=== PATIENT | female | born 1940 | race Caucasian/White ===

== ENCOUNTER 2016-07-03 19:30 | Observation (INO) | payer MEDICARE ==
--- NOTE | 2016-07-03 21:14 | EKG REPORT ---
SEVERITY:- ABNORMAL ECG - SINUS RHYTHM LEFT BUNDLE BRANCH BLOCK : Confirmed by: Ciro Romero MD 03-Jul-2016 21:13:43
[2016-07-03 21:36] LABS: ABSOLUTE BASOPHILS # (AUTO) 0.1 10^3/uL (0.0-0.2); ABSOLUTE EOSINOPHILS # (AUTO) 0.3 10^3/uL (0.0-0.6); ABSOLUTE LYMPHOCYTES (AUTO) 2.1 10^3/uL (0.5-4.7); ABSOLUTE MONOCYTES (AUTO) 0.8 10^3/uL (0.1-1.4); ABSOLUTE NEUT (AUTO) 5.6 10^3/uL (1.7-8.2); BASOPHILS % (AUTO) 0.7 % (0-2); EOSINOPHILS % (AUTO) 2.8 % (0-6); HEMATOCRIT 40.5 % (36.0-47.0); HEMOGLOBIN 13.9 g/dL (12.0-15.5); HGB HCT DIFFERENCE 1.2; LYMPHOCYTES % (AUTO) 23.7 % (13-45); MEAN CORPUSCULAR HEMOGLOBIN 31.7 pg (27.0-33.4); MEAN CORPUSCULAR HGB CONC 34.2 g/dL (32.0-36.0); MEAN CORPUSCULAR VOLUME 93 fl (80-97); MONOCYTES % (AUTO) 9.5 % (3-13); RED BLOOD COUNT 4.38 10^6/uL (3.72-5.28); RED CELL DISTRIBUTION WIDTH 12.6 % (11.5-14.0); SEGMENTED NEUTROPHILS % (AUTO) 63.3 % (42-78); WHITE BLOOD COUNT 8.8 10^3/uL (4.0-10.5)
[2016-07-03] MEDS ORDERED: NITROGLYCERIN 2% OINTMENT 1 GM PACKET TP ONE (21:47)
[2016-07-03 21:51] LABS: ALANINE AMINOTRANSFERASE 35 U/L (9-52); ALBUMIN 4.7 g/dL (3.5-5.0); ALKALINE PHOSPHATASE 100 U/L (38-126); ANION GAP 15 (5-19); ASPARTATE AMINO TRANSFERASE 27 U/L (14-36); BILIRUBIN,TOTAL 0.7 mg/dL (0.2-1.3); BLOOD UREA NITROGEN 14 mg/dL (7-20); CALCIUM 9.5 mg/dL (8.4-10.2); CARBON DIOXIDE 25 mmol/L (22-30); CHLORIDE 104 mmol/L (98-107); CREATINE KINASE 151 U/L (30-135); CREATININE RESULT 0.79 mg/dL (0.52-1.25); GLUCOSE 99 mg/dL (75-110); LIPASE 128.7 U/L (23-300); POTASSIUM 3.9 mmol/L (3.6-5.0); SODIUM 143.5 mmol/L (137-145); TOTAL PROTEIN 7.3 g/dL (6.3-8.2)
[2016-07-03 21:52] LABS: PROTHROMBIN TIME 13.4 SEC (11.4-15.4)
[2016-07-03 22:02] LABS: CREATINE KINASE MB 1.78 ng/mL (<4.55)
[2016-07-03 22:03] LABS: TROPONIN I < 0.012 ng/mL
--- NOTE | 2016-07-03 23:55 | ER Document Report ---
ED General - General Chief Complaint: Chest Pain Stated Complaint: UPPER ABDOMINAL PAIN TRAVEL OUTSIDE OF THE [place] IN LAST 30 DAYS: No - HPI Patient complains to provider of: left side chest pain left upper abdominal pain Notes: Patient coming in for left-sided chest pain started this morning. Patient also states also developed left upper abdominal pain. States pain or chest radiation to her shoulder. Patient states relieved with nitroglycerin home. Patient has a history of her recent stent placed in her LAD at the [facility] a Enrique Rice. Patient also states at that time told she has a left bundle branch block. Otherwise patient denies diaphoresis nausea vomiting fevers chills. Patient states she is still having some mild chest pain left side. No trauma no recent travel in the last 2 months Patient states she currently sees [facility] and also has been evaluated by Dr. guan - Related Data Allergies/Adverse Reactions: No Known Allergies Allergy (Unverified 07/03/16 23:19) Home Medications: Current Home Medications Albuterol Sulfate [Ventolin Hfa] 2 puff IN PRN PRN 07/04/16 [History] Aspirin [Ecotrin] 81 mg PO DAILY 07/04/16 [History] Atorvastatin Calcium 20 mg PO QHS 07/04/16 [History] Clopidogrel Bisulfate [Clopidogrel] 75 mg PO DAILY 07/04/16 [History] Ergocalciferol (Vitamin D2) [Vitamin D2] 50,000 unit PO Q2DAYS 07/04/16 [History ] Meloxicam [Meloxicam] 15 mg PO DAILY 07/04/16 [History] Metoprolol Succinate 50 mg PO DAILY 07/04/16 [History] Nitroglycerin 0.3 mg SL PRN PRN 07/04/16 [History] Past Medical History - General Information source: Patient, Relative - Social History Smoking Status: Current Every Day Smoker Chew tobacco use (# tins/day): No Frequency of alcohol use: None Drug Abuse: None Family History: None Patient has suicidal ideation: No Patient has homicidal ideation: No - Past Medical History Cardiac Medical History: Reports: Hx Hypertension Past Surgical History: Reports: Hx Cardiac Surgery - LAD Stent Review of Systems - Review of Systems Constitutional: No symptoms reported EENT: No symptoms reported Cardiovascular: Chest pain Respiratory: No symptoms reported Gastrointestinal: Abdominal pain Genitourinary: No symptoms reported Female Genitourinary: No symptoms reported Musculoskeletal: No symptoms reported Skin: No symptoms reported Hematologic/Lymphatic: No symptoms reported Neurological/Psychological: No symptoms reported -: Yes All other systems reviewed and negative Physical Exam - Vital signs Vitals: Resp 18 07/03/16 20:30 Interpretation: Normal - General General appearance: Appears well, Alert - HEENT Head: Normocephalic, Atraumatic Eyes: Normal Pupils: PERRL - Respiratory Respiratory status: No respiratory distress Chest status: Nontender Breath sounds: Normal Chest palpation: Normal - Cardiovascular Rhythm: Regular Heart sounds: Normal auscultation Murmur: No - Abdominal Inspection: Normal Distension: No distension Bowel sounds: Normal Tenderness: Nontender. No: Tender, McBurney's point, Correa's sign, Guarding, Rebound Organomegaly: No organomegaly - Back Back: Normal, Nontender - Extremities General upper extremity: Normal inspection, Nontender, Normal color, Normal ROM , Normal temperature General lower extremity: Normal inspection, Nontender, Normal color, Normal ROM , Normal temperature, Normal weight bearing. No: Pillo's sign - Neurological Neuro grossly intact: Yes Cognition: Normal Orientation: AAOx4 Jennifer Coma Scale Eye Opening: Spontaneous [place] Coma Scale Verbal: Oriented [place] Coma Scale Motor: Obeys Commands Jennifer Coma Scale Total: 15 Speech: Normal Motor strength normal: LUE, RUE, LLE, RLE Sensory: Normal - Psychological Associated symptoms: Normal affect, Normal mood - Skin Skin Temperature: Warm Skin Moisture: Dry Skin Color: Normal Course - Re-evaluation Re-evalutation: 07/03/16 23:53 Initial EKG shows left bundle branch block. Discussed this with patient she states that this is normal for her. Patient does not have any old EKGs here. Son at bedside confirms patient has a history of a left bundle branch block. 07/04/16 03:31 Chest pain improved after Nitropaste. Patient lab work and x-ray did not show any acute pathology. Patient's abdomen soft nontender therefore an acute abdominal series was performed no free air no white count or leukocytosis no signs discussed patient unclear etiology. Patient's case was discussed with hospitalist will admit patient for further evaluation. - Vital Signs Vital signs: Temp Pulse Resp BP Pulse Ox 98.4 F 16 113/74 94 07/04/16 02:00 07/04/16 02:54 07/04/16 02:54 07/04/16 02:54 - Laboratory Result Diagrams: 07/03/16 21:19 07/03/16 21:19 Laboratory results interpreted by me: 07/03/16 21:19 Creatine Kinase 151 H Discharge - Discharge Clinical Impression: Chest pain Qualifiers: Chest pain type: unspecified Qualified Code(s): R07.9 - Chest pain, unspecified Disposition: ADMITTED OBSERVATION Admitting Provider: [facility] Admitted: Telemetry
[2016-07-04] MEDS ORDERED: ACETAMINOPHEN 325 MG TABLET PO PRN (00:54)
[2016-07-04] MEDS ORDERED: NICOTINE 7 MG/24 HR PATCH.TD24 TD PRN (02:30)
[2016-07-04] MEDS ORDERED: PROMETHAZINE HCL INJ 25 MG/1 ML VIAL IV PRN (02:34)
[2016-07-04] MEDS ORDERED: ALBUTEROL SULFATE HFA (90 MCG/PUFF) 8 GM MDI (1 MDI/ER DISP) IH PRN (02:35)
--- NOTE | 2016-07-04 02:54 | PDOC H&P ---
History of Present Illness Admission Date/PCP: 07/04/16 00:[address] Orta Patient complains of: chest pain History of Present Illness: SUE ROBLEDO is a 75 year old female with known coronary artery disease , having undergone implantation of a single LAD stent in 2016 in [facility], along with known left bundle branch block on prior EKGs, who presents to the emergency room for evaluation of above complaint. Patient has been discussed with emergency room physician who evaluated the patient. Shortly after awakening on the first, she noted the onset of left-sided abdominal pain that migrated into her left chest and radiated into her left arm. Has had prior but milder episodes of this pain. Some associated shortness of breath, but no nausea or diaphoresis. Nothing in particular made the pain worse. She took 4 sublingual nitroglycerin at home, with only partial relief of her pain. Has received 1/2 inch of Nitropaste here in the emergency room, which has completely resolved the pain, without recurrence. She is currently resting quietly, chest pain-free. There is no history of myocardial infarction congestive heart failure, pulmonary embolus,, DVT, or unusual lower extremity swelling or discomfort. Still smokes 2 cigarettes a day, but states she is trying to cut back. An occasional beer, but not very often. No illicit drug use. Concomitant medical problems in this patient include COPD, arthritis, hyperlipidemia, occasional urinary tract infection, and easy bruising. [facility] and are reviewed. X-ray summary results are listed below, with full report(s) reviewed. . EKG reviewed . No old EKG available for comparison. According to emergency room physician, son, who was present earlier at the patient's bedside, stated patient has a history of left bundle branch block. Social history/personal habits: A . Recently moved to the area from [facility] to live with her son. Retired. Personal habits as noted above. Family History : Children are healthy. Brother has heart problems. Mother during the of this patient. Father of complications of pneumonia. Allergies/adverse reactions NKDA. Home medications are reviewed by bottle review and discussion with patient and are to be reconciled by nursing staff in [facility]. Compliant with medications. No recent medication changes. REVIEW OF SYSTEMS: Constitutional: No fever or chills. Eyes: No current vision complaints. ENT: No swallowing problems or complaints. No hearing problems or complaints. Pulmonary: No current complaints. Cardiovascular: See history and present illness. Gastrointestinal: No current complaints, including nausea or vomiting. Skin: No current complaints, including rashes. Hematologic: Easy bruising. Neurologic: No current complaints, including numbness or tingling. Musculoskeletal: Joint pain from arthritis. Psychiatric: No current complaints, including anxiety or depression. Endocrine: No current complaints, including polyuria. Genitourinary: No current complaints, including dysuria. PHYSICAL EXAMINATION: 5 feet 2 inches tall. 61.2 kg. BMI 24.7 kg/m. Blood pressure 156/67. Pulse 81 and regular. 94% saturation on room air. Respirations are 22 and unlabored. Temperature is not recorded on the chart; skin feels normothermic. Thin otherwise well-developed though somewhat chronically ill-appearing female who appears perhaps a bit older than her stated age. Pleasant awake alert and cooperative. No obvious distress other than perhaps mildly anxious. Skin is warm and dry. No grossly obvious evidence of rash in areas of skin examined. No subcutaneous nodules palpated. Multiple tattoos. ENT: Hearing grossly normal to normal conversation. Tongue midline on protrusion pink and slightly moist. Eyes: No scleral icterus. Pupils equal and reactive to light at 4 mm. Bowdens conjunctivae. Neck is supple and nontender to gentle active range of motion and palpation. Midline trachea. No palpable thyroid nodule mass enlargement or tenderness. Lymphatic: No palpable cervical or clavicular nodes. Neck and lymphatic exams limited by patient body habitus. Psychiatric: Fair to reasonable insight into acute and chronic medical issues. Oriented to time location and why here. Lungs: Auscultation reveals clear and equal breath sounds bilaterally. No use of accessory respiratory muscles. Cardiovascular: Heart regular rate and rhythm, without gallop murmur or rub. No carotid or abdominal aortic bruits. No ankle or pedal edema. Faintly palpable dorsalis pedis pulses. Abdomen: soft, , slightly distended nontender with positive bowel sounds. Unable to adequately evaluate abdomen for masses or organomegaly due to distention. Compression of epigastrium and left upper quadrant, sternum, and left lower lateral chest wall all seem to reproduce her previously noted chest discomfort. Extremities: Feet are warm and dry. No calf tenderness to compression. No grossly obvious visual evidence of calf swelling. Gentle manipulation of lower extremities fails to reveal any obvious evidence of injury or instability to knees hips or ankles. Neurologic: Moves upper extremities grossly normally. Patellar reflexes absent. Absent Babinski. Light touch is intact at feet. Dorsiflexion and plantarflexion of feet 5 / 5 and symmetric. Past Medical History Cardiac Medical History: Reports: Coronary Artery Disease, Hyperlipidema, Hypertension Denies: Congestive Heart Failure, DVT, Myocardial Infarction, Pulmonary Embolism Pulmonary Medical History: Reports: Chronic Obstructive Pulmonary Disease (COPD) EENT Medical History: Denies: Eyes, Ears, Throat Neurological Medical History: Denies: Hemorrhagic CVA, Ischemic CVA, Seizures Endocrine Medical History: Denies: Diabetes Mellitus Type 1, Diabetes Mellitus Type 2, Hyperthyroidism, Hypothyroidism Renal/ Medical History: Reports: Other - Occasional urinary tract infection. GI Medical History: Denies: Cirrhosis, Gastroesophageal Reflux Disease, Hepatitis, Peptic Ulcer Disease Musculoskeltal Medical History: Reports: Arthritis Skin Medical History: Reports: None Denies: Eczema, Psoriasis Psychiatric Medical History: Reports: Tobacco Dependency Denies: Alcohol Dependency, Depression, General Anxiety Disorder, Substance Abuse Hematology: Reports: Other - Easy bruising. Infectious Medical History: Denies: Hepatitis B, Hepatitis C Past Surgical History Past Surgical History: Reports: Coronary Stent, Tubal Ligation - Bilateral cataract surgery with lens implants. Social History Information Source: Patient, Emergency Med Personnel, [facility] Records Lives with: Family Smoking Status: Current Every Day Smoker Frequency of Alcohol Use: Rare Drugs: None - Advance Directive Resuscitation Status: Full Code Surrogate healthcare decision maker:: Her son, with whom she currently lives. Family History Parental Family History Reviewed: Yes Children Family History Reviewed: Yes Sibling(s) Family History Reviewed.: Yes Medication/Allergy Home Medications: RX: Albuterol Sulfate [Ventolin Hfa] 2 puff IN PRN PRN 07/04/16 RX: Aspirin [Ecotrin] 81 mg PO DAILY 07/04/16 RX: Atorvastatin Calcium 20 mg PO QHS 07/04/16 RX: Clopidogrel Bisulfate [Clopidogrel] 75 mg PO DAILY 07/04/16 RX: Ergocalciferol (Vitamin D2) [Vitamin D2] 50,000 unit PO Q2DAYS 07/04/16 RX: Meloxicam 15 mg PO DAILY 07/04/16 RX: Metoprolol Succinate 50 mg PO DAILY 07/04/16 RX: Nitroglycerin 0.3 mg SL PRN PRN 07/04/16 Famotidine [Pepcid 20 mg Tablet] 20 mg PO BID #60 tablet 07/05/16 RX: Nicotine [Nicoderm 14 mg/24 Hr Transdermal Patch] 1 each TD DAILY #28 patch.[email or web address] 07/05/16 Allergies/Adverse Reactions: No Known Allergies Allergy (Verified 07/04/16 04:12) Physical Exam Vital Signs: Temp Pulse Resp BP Pulse Ox 20 156/67 H 94 07/04/16 01:01 07/04/16 01:01 07/04/16 01:01 Results Laboratory Results: 07/04/16 00:55 Troponin I < 0.012 Impressions: Acute Abdomen Series 07/03/16 20:56 IMPRESSION: 1. COPD. 2. No suggestion of acute abdominopelvic abnormality. Assessment & Plan - Diagnosis (1) Precordial chest pain Is this a current diagnosis for this admission?: YesPlan: Although likely her discomfort is musculoskeletal in origin, Patient will be placed in observation bed under chest pain protocol. Patient understands to notify staff should chest pain recur. Serial troponin's . Repeat EKG. lipid panel. I have strongly encouraged patient not to get out of bed without notifying staff , to avoid a fall with injury. Knee high SCDs for DVT prophylaxis, along with subcutaneous Lovenox. Impression and plans were discussed with patient, who concurs. Time spent in evaluation and management of patient: 59 minutes. (2) COPD (chronic obstructive pulmonary disease) Qualifiers: COPD type: unspecified COPD Qualified Code(s): J44.9 - Chronic obstructive pulmonary disease, unspecified Is this a current diagnosis for this admission?: YesPlan: Clinically stable at this point in time.Resume home medications as appropriate once these have been reviewed. (3) HTN (hypertension) Qualifiers: Hypertension type: essential hypertension Qualified Code(s): I10 - Essential (primary) hypertension Is this a current diagnosis for this admission?: YesPlan: Resume home medications as appropriate once these have been reviewed. (4) Hyperlipidemia Qualifiers: Hyperlipidemia type: unspecified Qualified Code(s): E78.5 - Hyperlipidemia, unspecified Is this a current diagnosis for this admission?: YesPlan: Lipid panel.Resume home medications as appropriate once these have been reviewed. (5) Stented coronary artery Is this a current diagnosis for this admission?: Yes (6) Tobacco dependency Is this a current diagnosis for this admission?: YesPlan: . When necessary Nicotine patch.
[2016-07-04] MEDS: LANSOPRAZOLE 30 MG TAB.RAP.DR PO SCH (05:07)
[2016-07-04 07:40] LABS: CHOLESTEROL 144.86 mg/dL (0-200); Direct HDL 87 mg/dL (>40); TRIGLYCERIDES 90 mg/dL (<150)
[2016-07-04 07:51] LABS: DIRECT LDL 46 mg/dL (<100)
--- NOTE | 2016-07-04 09:12 | EKG REPORT ---
SEVERITY:- ABNORMAL ECG - SINUS RHYTHM LEFT BUNDLE BRANCH BLOCK : Confirmed by: Rod Orta 04-Jul-2016 09:11:57
[2016-07-04] MEDS: DOCUSATE SODIUM 100 MG CAPSULE PO SCH (09:16)
[2016-07-04] MEDS: METOPROLOL SUCCINATE 50 MG TAB.SR.24H PO SCH (09:16)
[2016-07-04] MEDS: ENOXAPARIN SODIUM INJ 40 MG/0.4 ML DISP.SYRIN SUBCUT SCH (09:17)
[2016-07-04] MEDS: ASPIRIN 81 MG TABLET, ENT COATED PO SCH (09:17)
[2016-07-04] MEDS: CLOPIDOGREL BISULFATE 75 MG TABLET PO SCH (09:18)
[2016-07-04] MEDS ORDERED: ERGOCALCIFEROL (VITAMIN D2) 50000 UNIT (1.25 MG) CAPSULE PO SCH (10:00)
[2016-07-04] MEDS ORDERED: NICOTINE 14 MG/24 HR PATCH.TD24 TD ONE (12:45)
--- NOTE | 2016-07-04 16:06 | PDOC PROGRESS REPORT ---
Subjective Progress Note for:: 07/04/16 Subjective:: Patient has continued left lateral chest pain and dyspnea. Patient denies fever , chills, headache, new focal weakness, abdominal pain, nausea, vomiting, diarrhea, constipation. Physical Exam Vital Signs: Temp Pulse Resp BP Pulse Ox 97.4 F 65 20 121/69 96 07/04/16 10:58 07/04/16 14:31 07/04/16 10:58 07/04/16 10:58 07/04/16 10:58 Intake & Output 07/03/16 07/04/16 07/05/16 06:59 06:59 06:59 Intake Total 243 600 Output Total 0 400 Balance 243 200 Weight 65 kg GENERAL: No acute distress HEENT: Conjunctiva clear, nonicteric, moist mucous membranes, no JVD, midline trachea RESPIRATORY: Clear to auscultation bilaterally, no wheezes, no rhonchi CARDIAC: Regular rate and rhythm, no murmurs/gallops/rubs. Reproducible left lower lateral chest wall tenderness ABDOMEN: Soft, nondistended, nontender, positive bowel sounds, no rebound, no guarding EXTREMETIES: No edema, cyanosis, clubbing NEUROLOGIC: Alert, oriented to person/place/time, CN's grossly intact, no focal deficits SKIN: No rash, wounds PSYCH: Normal mood, normal affect Results Laboratory Results: 07/04/16 06:39 Triglycerides 90 Cholesterol 144.86 LDL Cholesterol Direct 46 VLDL Cholesterol 18.0 HDL Cholesterol 87 07/04/16 07/04/16 06:39 12:30 Troponin I 0.013 < 0.012 Impressions: Acute Abdomen Series 07/03/16 20:56 IMPRESSION: 1. COPD. 2. No suggestion of acute abdominopelvic abnormality. Chest/Abdomen CTA 07/04/16 00:00 IMPRESSION: 1. Probable chronic lung changes. COPD with scar. 2. Age- indeterminate T12 compression fracture. 3. No pulmonary embolus or aortic pathology demonstrated. Assessment & Plan - Diagnosis (1) Chest pain Qualifiers: Chest pain type: unspecified Qualified Code(s): R07.9 - Chest pain, unspecified Is this a current diagnosis for this admission?: YesPlan: Patient's chest pain is reproducible on exam. This may represent musculoskeletal chest wall pain. CTA is negative for pulmonary embolism. Serial cardiac enzymes are negative. 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 Continue aspirin, Plavix, Lipitor, Toprol-XL. Patient was counseled on smoking cessation with her son present in the room. (2) Stented coronary artery Is this a current diagnosis for this admission?: YesPlan: Recent had HELPER SHEAR OPERATOR/stent in 2016 performed and Count [facility]cludes [facility]. She continues to smoke. (3) T12 compression fracture Is this a current diagnosis for this admission?: YesPlan: This is age-indeterminate noted on CT scan. I don't think this is the cause of patient's acute pain. (4) COPD (chronic obstructive pulmonary disease) Qualifiers: COPD type: unspecified COPD Qualified Code(s): J44.9 - Chronic obstructive pulmonary disease, unspecified Is this a current diagnosis for this admission?: YesPlan: Patient is prescribed albuterol when necessary. She has no overt bronchospasm at this time. Obviously smoking cessation would be better than any medication we could prescribe. (5) HTN (hypertension) Qualifiers: Hypertension type: essential hypertension Qualified Code(s): I10 - Essential (primary) hypertension Is this a current diagnosis for this admission?: Yes (6) Hyperlipidemia Qualifiers: Hyperlipidemia type: unspecified Qualified Code(s): E78.5 - Hyperlipidemia, unspecified Is this a current diagnosis for this admission?: Yes (7) Tobacco dependency Is this a current diagnosis for this admission?: Yes - Time Time Spent with patient: 25-34 minutes Anticipated discharge: Home Within: within 24 hours
[2016-07-04] MEDS ORDERED: ATORVASTATIN CALCIUM 20 MG TABLET PO SCH (22:00)
[2016-07-05] MEDS ORDERED: INFLUENZA ADLT QUAD (36MOS+) 2016-17 VAC 0.5 ML SYR IM PRN (00:51)
[2016-07-05] MEDS: LANSOPRAZOLE 30 MG TAB.RAP.DR PO SCH (05:03)
[2016-07-05] MEDS ORDERED: NICOTINE 14 MG/24 HR PATCH.TD24 TD SCH (10:00)
[2016-07-05] MEDS: CLOPIDOGREL BISULFATE 75 MG TABLET PO SCH (10:18)
[2016-07-05] MEDS: DOCUSATE SODIUM 100 MG CAPSULE PO SCH (10:18)
[2016-07-05] MEDS: ASPIRIN 81 MG TABLET, ENT COATED PO SCH (10:18)
[2016-07-05] MEDS: ENOXAPARIN SODIUM INJ 40 MG/0.4 ML DISP.SYRIN SUBCUT SCH (10:19)
[2016-07-05] MEDS: METOPROLOL SUCCINATE 50 MG TAB.SR.24H PO SCH (10:19)
[2016-07-05 11:37] VITALS: BP 102/75
--- NOTE | 2016-07-05 11:59 | DRAGON STRESS TEST REPORT ---
Intravenous Lexiscan Cardiolite stress test using single photon emmision computerized tomography. Date of procedure: 07/05/2016 Ordering Provider: Dr. Rico Gibbs. Indication: Chest pain in a patient with coronary artery disease.. Coronary risk factors: Age, hypertension, dyslipidemia, tobacco abuse disorder, and family history of coronary artery disease. The patient states she had a left ventricle descending artery stent in 2016 in [facility] Resting EKG: Sinus Rhythm. Left bundle branch block pattern. Stress EKG: No changes of ischemia. The patient had no chest pain or discomfort, and there were no arrhythmias seen. The patient had transient dry heaves without vomiting, which subsided after she was able to drink some Pepsi. Reason for termination: Protocol. Conclusions: Normal EKG and hemodynamic response to IV Lexiscan. Nuclear data: At rest the patient was given 10.62 millicuries of technetium 99m sestamibi injected intravenously. As per protocol rest non gated SPECT images were obtained. Subsequently the patient was given intravenous Lexiscan at a dose of 0.4 mg in 5 mL intravenously, followed by flush with normal saline. Subsequently the stress dose of 32.6 millicuries of technetium 99m sestamibi was injected intravenously. As per protocol stress gated images were obtained. Nuclear interpretation: Review of images showed that all segments of the myocardium had normal perfusion at rest, and normal perfusion post stress with IV Lexiscan. All segments of the myocardium had normal motion, contraction, and thickening by gated study. The patient has a short interventricular septum. T. I D. ratio was normal at 0.96. Computer read rest, and stress left ventricular ejection fraction were 48 %, and 49 %, respectively. Visually both the stress and rest ejection fractions were normal, and greater than 55%. Conclusion: 1. There is no scintigraphic evidence of Lexiscan induced myocardial ischemia. 2. There is no scintigraphic evidence of myocardial infarction/scar. Recommendations: 1.Aggressive treatment of coronary artery disease and hypertension and dyslipidemia. 2.Recommend smoking cessation counseling. 3.Aggressive risk factor modification, and treating the underlying co- morbidities. [facility]
[2016-07-05] MEDS ORDERED: REGADENOSON INJ 0.4 MG/5 ML DISP.SYRIN IV ONE (12:13)
[2016-07-05] MEDS ORDERED: NITROGLYCERIN 0.4 MG/TAB 25 TAB/BOTTLE ONE (12:13)
--- NOTE | 2016-07-05 17:57 | PDOC DISCHARGE SUMMARY ---
General - Admit/Disc Date/PCP Admission Date/Primary Care Provider: 07/04/16 02:31 Discharge Date: 07/05/16 - Discharge Diagnosis (1) CAD (coronary artery disease) Is this a current diagnosis for this admission?: Yes (2) Precordial chest pain Is this a current diagnosis for this admission?: Yes (3) T12 compression fracture Is this a current diagnosis for this admission?: Yes (4) Arthritis Is this a current diagnosis for this admission?: Yes (5) COPD (chronic obstructive pulmonary disease) Is this a current diagnosis for this admission?: Yes (6) HTN (hypertension) Is this a current diagnosis for this admission?: Yes (7) Hyperlipidemia Is this a current diagnosis for this admission?: Yes (8) Tobacco dependency Is this a current diagnosis for this admission?: Yes - Additional Information Resuscitation Status: Full Code Discharge Diet: Cardiac Discharge Activity: Activity As Tolerated, Balance Activity w/Rest Home Medications: Albuterol Sulfate [Ventolin Hfa] 2 puff IN PRN PRN 07/04/16 Aspirin [Ecotrin] 81 mg PO DAILY 07/04/16 Atorvastatin Calcium 20 mg PO QHS 07/04/16 Clopidogrel Bisulfate [Clopidogrel] 75 mg PO DAILY 07/04/16 Ergocalciferol (Vitamin D2) [Vitamin D2] 50,000 unit PO Q2DAYS 07/04/16 Meloxicam 15 mg PO DAILY 07/04/16 Metoprolol Succinate 50 mg PO DAILY 07/04/16 Nitroglycerin 0.3 mg SL PRN PRN 07/04/16 Famotidine [Pepcid 20 mg Tablet] 20 mg PO BID #60 tablet 07/05/16 Nicotine [Nicoderm 14 mg/24 Hr Transdermal Patch] 1 each TD DAILY #28 patch.[email or web address] 07/05/16 History of Present Illness History of Present Illness: Please see H&P for full history of present illness Hospital Course Hospital Course: Patient is 75yo female with a history of CAD and PTCA approximately one year prior who presents to the emergency department with complaints of chest pain. Patient has seen Dr. Orta in the past and previously had a single LAD stent in 2016 in [place], [place]. The patient at baseline patient has a left bundle branch block. Patient was placed on observation for possible acute coronary syndrome and she underwent cardiac stress test today which was negative. It was felt that due to recent initiation of mobility patient was having some gastrointestinal source for her chest pain and discharged with Pepcid. Patient additionally had left-sided chest pain that was reproducible on examination and was found also to have a T12 compression fracture of muscle skeletal complaints of which could contribute to her underlying chest pain. Patient had no further recurrences of chest pain. CTA was performed and was negative for PE. She was discharged in stable condition with advice to follow-up with the PCP and her mesh cutter. Physical Exam Vital Signs: Temp Pulse Resp BP Pulse Ox 97.3 F 57 L 16 102/75 97 07/05/16 13:29 07/05/16 13:29 07/05/16 13:29 07/05/16 13:29 07/05/16 13:29 Intake & Output 07/04/16 07/05/16 07/06/16 06:59 06:59 06:59 Intake Total 243 1723 120 Output Total 0 2225 Balance 243 -502 120 Weight 65 kg 64.5 kg Exam: General: Awake alert and oriented x3, no acute respiratory distress HEENT: AT/NC, PERRL, EOMI, oropharynx is moist, pink, no scleral icterus, no conjunctival injection Neck: No JVD, trachea midline Chest: Clear to auscultation bilaterally, no wheezes rhonchi or rales, prolonged expiratory phase CV: Regular rate and rhythm, normal S1 and S2, no murmur, rub, or gallop Abdomen: Soft, nontender to palpation, nondistended, active bowel sounds; no rebound, rigidity, or guarding Extremities: No cyanosis, clubbing or edema Neuro: Cranial nerves II through XII are grossly intact without focal deficits; awake alert and oriented x3 Psych: Normal mood and affect Results Laboratory Results: 07/04/16 07/04/16 06:39 12:30 Troponin I 0.013 < 0.012 Impressions: Acute Abdomen Series 07/03/16 20:56 IMPRESSION: 1. COPD. 2. No suggestion of acute abdominopelvic abnormality. Chest/Abdomen CTA 07/04/16 00:00 IMPRESSION: 1. Probable chronic lung changes. COPD with scar. 2. Age- indeterminate T12 compression fracture. 3. No pulmonary embolus or aortic pathology demonstrated. Status: Imported from PACS Qualifiers [facility] BEING DISCHARGED WITH ANY OF THE FOLLOWING DIAGNOSIS?: No Plan Time Spent: Less than 30 Minutes
== END 2016-07-05 15:55 | disposition home or self-care (01) ==
LOC: ER 19:30 → UNDOADMOB 07-04 00:53 → EH 07-04 00:53 → 3N 07-04 03:30
PROVIDERS: ADMIT Family Medicine; ATTEND Family Medicine
PROC: 3E0234Z Introduction of Serum, Toxoid and Vaccine into Muscle, Percutaneous Approach (ICD-10-PCS; principal; 2016-07-05)
DX: I25.10 Atherosclerotic heart disease of native coronary artery without angina pectoris (principal); R07.2 Precordial pain; M48.54XA Collapsed vertebra, not elsewhere classified, thoracic region, initial encounter for fracture; M19.90 Unspecified osteoarthritis, unspecified site; J44.9 Chronic obstructive pulmonary disease, unspecified; I10 Essential (primary) hypertension; E78.5 Hyperlipidemia, unspecified; F17.200 Nicotine dependence, unspecified, uncomplicated; Z23 Encounter for immunization; Z95.5 Presence of coronary angioplasty implant and graft
CPT/HCPCS: 93005 ×2; 99285; 36415 ×2; 82553; 82550; 83690; 85025; 85610; 80053; 84484 ×2; 80061; 93017; 74022; 78452; 71275; 90686; 93010 ×2; 90471; G0378 ×3; A9500; J2785; A9270 ×12; J3490 ×4; J1650 ×2; Q9969

== ENCOUNTER → 2016-08-03 | Outpatient (CLI) | payer MEDICAID, MEDICARE ==
--- NOTE | 2016-08-03 09:59 | WOMENS IMAGING REPORT ---
EXAM DESCRIPTION: BONE DENSITY HIP/SPINE COMPLETED DATE/TIME: 08/03/2016 9:00 am REASON FOR STUDY: M81.0 M81.0 AGE-RELATED OSTEOPOROSIS W/O CURRENT PATHOLOGICAL FRAC COMPARISON: None. TECHNIQUE: Dual-Energy X-ray Absorptiometry (DEXA) of the AP Spine and Hip. LIMITATIONS: None. FINDINGS: LUMBAR SPINE: The bone mineral density (BMD) measured from L1-L4 in the AP projection correlates with a T-score of -2.5, which is osteoporotic as defined by the World Health Organization. HIP: The bone mineral density (BMD) measured in the left femoral neck at the hip correlates with a T-score of -2.3, which is osteopenic as defined by the World Health Organization. COMMENT: The World Health Organization defines low BMD as follows: T-score: Normal: Greater than -1.0 Osteopenia: Between -1.0 and -2.5 Osteoporosis: Less than -2.5 without fractures Established osteoporosis: Less than -2.5 with fractures In general, you may wish to consider: Diagnosis Treatment Follow-up DEXA Normal BMD Prevention 2-3 years Osteopenia Prevention/Therapy 1-2 years Osteoporosis Therapy Yearly TECHNICAL DOCUMENTATION: JOB ID: [id number] [employer]- All Rights Reserved
== END ==
LOC: WI 08:39
PROVIDERS: ATTEND Internal Medicine
DX: M81.0 Age-related osteoporosis without current pathological fracture (principal)
CPT/HCPCS: 77080

== ENCOUNTER → 2016-11-14 | Outpatient (CLI) | payer MEDICAID | LOC: WI 13:55 | PROVIDERS: ATTEND Internal Medicine | DX: Z12.31 Encounter for screening mammogram for malignant neoplasm of breast (principal) | CPT/HCPCS: 77067; G0202 ==

== ENCOUNTER 2017-01-23 10:19 | Observation (INO) | payer MEDICARE, MEDICAID ==
[2017-01-23 12:07] LABS: ABSOLUTE BASOPHILS # (AUTO) 0.1 10^3/uL (0.0-0.2); ABSOLUTE EOSINOPHILS # (AUTO) 0.2 10^3/uL (0.0-0.6); ABSOLUTE LYMPHOCYTES (AUTO) 1.7 10^3/uL (0.5-4.7); ABSOLUTE MONOCYTES (AUTO) 0.5 10^3/uL (0.1-1.4); BASOPHILS % (AUTO) 1.1 % (0-2); EOSINOPHILS % (AUTO) 3.8 % (0-6); HEMATOCRIT 39.2 % (36.0-47.0); HEMOGLOBIN 13.3 g/dL (12.0-15.5); HGB HCT DIFFERENCE 0.7; LYMPHOCYTES % (AUTO) 30.9 % (13-45); MEAN CORPUSCULAR HEMOGLOBIN 32.3 pg (27.0-33.4); MEAN CORPUSCULAR HGB CONC 33.9 g/dL (32.0-36.0); MEAN CORPUSCULAR VOLUME 95 fl (80-97); MONOCYTES % (AUTO) 8.3 % (3-13); RED BLOOD COUNT 4.11 10^6/uL (3.72-5.28); RED CELL DISTRIBUTION WIDTH 12.7 % (11.5-14.0); SEGMENTED NEUTROPHILS % (AUTO) 55.9 % (42-78); WHITE BLOOD COUNT 5.4 10^3/uL (4.0-10.5)
[2017-01-23 12:30] LABS: ALANINE AMINOTRANSFERASE 30 U/L (9-52); ALBUMIN 4.3 g/dL (3.5-5.0); ALKALINE PHOSPHATASE 98 U/L (38-126); ANION GAP 11 (5-19); ASPARTATE AMINO TRANSFERASE 24 U/L (14-36); BILIRUBIN,DIRECT 0.4 mg/dL (0.0-0.4); BILIRUBIN,TOTAL 0.5 mg/dL (0.2-1.3); BLOOD UREA NITROGEN 11 mg/dL (7-20); CALCIUM 9.5 mg/dL (8.4-10.2); CARBON DIOXIDE 24 mmol/L (22-30); CHLORIDE 107 mmol/L (98-107); CREATININE RESULT 0.83 mg/dL (0.52-1.25); GLUCOSE 95 mg/dL (75-110); POTASSIUM 4.5 mmol/L (3.6-5.0); SODIUM 141.7 mmol/L (137-145); TOTAL PROTEIN 7.5 g/dL (6.3-8.2)
[2017-01-23] MEDS ORDERED: ALBUTEROL SULFATE HFA (90 MCG/PUFF) 8 GM MDI (1 MDI/ER DISP) IH PRN (12:37)
[2017-01-23] MEDS ORDERED: NITROGLYCERIN 0.4 MG/TAB 25 TAB/BOTTLE SL PRN (12:45)
[2017-01-23] MEDS ORDERED: ALBUTEROL SULFATE HFA (90 MCG/PUFF) 200 PUFF/8.5 GM MDI IH PRN (13:45)
--- NOTE | 2017-01-23 13:56 | EKG REPORT ---
SEVERITY:- ABNORMAL ECG - SINUS RHYTHM LEFT BUNDLE BRANCH BLOCK : Confirmed by: Hannah Aguirre MD 23-Jan-2017 13:56:33
[2017-01-23 15:16] LABS: CREATINE KINASE MB 1.67 ng/mL (<4.55)
[2017-01-23 15:17] LABS: TROPONIN I < 0.012 ng/mL
--- NOTE | 2017-01-23 17:28 | RADIOLOGY REPORT (SQ) ---
EXAM DESCRIPTION: CHEST SINGLE VIEW COMPLETED DATE/TIME: 01/23/2017 4:27 pm REASON FOR STUDY: abnormal ekg COMPARISON: None. EXAM PARAMETERS: NUMBER OF VIEWS: One view. TECHNIQUE: Single frontal radiographic view of the chest acquired. RADIATION DOSE: NA LIMITATIONS: None. FINDINGS: LUNGS AND PLEURA: Apical scarring. MEDIASTINUM AND HILAR STRUCTURES: No masses. Contour normal. HEART AND VASCULAR STRUCTURES: Heart normal in size. Normal vasculature. BONES: No acute findings. HARDWARE: None in the chest. OTHER: No other significant finding. IMPRESSION: Apical scarring. No acute pulmonary disease. TECHNICAL DOCUMENTATION: JOB ID: [id number]
--- NOTE | 2017-01-23 17:55 | RADIOLOGY REPORT (SQ) ---
EXAM DESCRIPTION: MRI LUMBAR SPINE WITHOUT COMPLETED DATE/TIME: 01/23/2017 4:21 pm REASON FOR STUDY: Radicoapthy COMPARISON: CT 07/04/2016 TECHNIQUE: Sagittal and Axial imaging includes T1, T2, STIR and gradient echo sequences. Coronal T2/ HASTE imaging. LIMITATIONS: None. FINDINGS: VISUALIZED UPPER ABDOMEN: Limited evaluation. No acute or suspicious findings suggested. SEGMENTATION: No transitional anatomy. The lowest well-developed disc space is labeled L5-S1. ALIGNMENT: Grade 1 spondylolisthesis L5 on S1 with bilateral spondylolysis. VERTEBRAE: Old anterior wedge compression fracture of T12. BONE MARROW: Reactive changes L5-S1. DISC SIGNAL: Loss of height and T2 signal T12-L1 and L5-S1. POSTERIOR ELEMENTS: Generally intact. No pars defect evident. HARDWARE: None in the spine. CORD AND CONUS: Normal in size and signal intensity. Conus at the appropriate level. SOFT TISSUES: No aortic aneurysm seen. No bulky retroperitoneal adenopathy or mass. No paraspinal mas s or fluid. L1-L2: No significant spinal stenosis or exit foraminal stenosis. L2-L3: No significant spinal stenosis or exit foraminal stenosis. L3-L4: No significant spinal stenosis or exit foraminal stenosis. L4-L5: No significant spinal stenosis or exit foraminal stenosis. L5-S1: Degenerative disc with broad-based bulge. Moderate narrowing of the exit foramina. No spinal stenosis. LOWER THORACIC: Old posttraumatic changes with degenerative disc and disc osteophyte complex secondar y to 5.5 mm retropulsion of the inferior T12 vertebral body. Mild Central canal stenosis. Moderate exit foraminal stenosis left greater than right. SACRUM: Visualized upper sacrum intact. OTHER: No other significant findings. IMPRESSION: Grade 1 spondylolisthesis L5 on S1 with bilateral spondylolysis. L5-S1 degenerative dis c with moderate narrowing of the exit foramina. Old T12 compression fracture with retropulsion inferiorly at the T12-L1 disc space. Mild central can al stenosis and moderate exit foraminal stenosis left greater than right. TECHNICAL DOCUMENTATION: JOB ID: [id number] [employer]- All Rights Reserved
--- NOTE | 2017-01-23 20:22 | PDOC H&P ---
History of Present Illness Admission Date/PCP: 01/23/17 10:19 RICHARD LOPEZ MD History of Present Illness: SUE ROBLEDO is a 76 year old female, She came to the office today for evaluation of progressive shortness of breath on mild exertion, she has a history of chronic obstructive pulmonary disease, coronary artery disease with stent placement. In the office she was evaluated the oxygen saturation on digital pulse oximetry was 95%, the 12-lead EKG was done in the office, it showed sinus rhythm with left bundle branch block. She does not know if she was diagnosed with left bundle branch block previously, I have no old EKG to compare with in the office, because of the history of coronary artery disease and the fact that she has progressive shortness of breath with left bundle branch block I thought the prudent plan of care for this patient at this time will be to admit her for observation and evaluation in the hospital ,so she was admitted directly from the office to the hospital for management. The 12- lead EKG that was done in the hospital is also sinus rhythm with left bundle branch block but this was compared to previous EKG that was done in the hospital and apparently she has a history of left bundle branch block. She also complained of back pain with radicular symptoms going down the legs ,MRI of the lumbar spine was done without contrast it showed old anterior wedge compression fracture at T12, she has a history of osteoporosis so this is probably osteoporotic compression fracture of thoracic spine. The lumbar spine did not show any significant spinal stenosis at all levels except at L5-S1 there is degenerative disc disease. Broad based bulge with moderate narrowing of the exit foramina no spinal stenosis. Past Medical History Cardiac Medical History: Reports: Coronary Artery Disease, Hyperlipidema, Hypertension Pulmonary Medical History: Reports: Chronic Obstructive Pulmonary Disease (COPD) Endocrine Medical History: Reports: Other - Osteoporosis Musculoskeltal Medical History: Reports: Arthritis Past Surgical History Past Surgical History: Reports: Coronary Stent, Tubal Ligation - Bilateral cataract surgery with lens implants. Social History Smoking Status: Former Smoker Number of Years Smokin Last Time Smoked: 05/2016 Frequency of Alcohol Use: None Hx Recreational Drug Use: No Drugs: None Hx Prescription Drug Abuse: No Family History Family History: None Parental Family History Reviewed: Yes Children Family History Reviewed: Yes Sibling(s) Family History Reviewed.: Yes Medication/Allergy Home Medications: Albuterol Sulfate [Ventolin Hfa] 2 puff IN Q4HP PRN 07/04/16 Aspirin [Ecotrin] 81 mg PO DAILY 07/04/16 Atorvastatin Calcium 20 mg PO QHS 07/04/16 Clopidogrel Bisulfate [Clopidogrel] 75 mg PO DAILY 07/04/16 Metoprolol Succinate 50 mg PO DAILY 07/04/16 Nitroglycerin 0.3 mg SL PRN PRN 07/04/16 Ergocalciferol (Vitamin D2) [Vitamin D2] 2,000 units PO DAILY 01/23/17 Famotidine [Pepcid 20 mg Tablet] 20 mg PO DAILY 01/23/17 Umeclidinium Brm/Vilanterol Tr [Anoro Ellipta 62.5-25 Mcg INH] 1 each IH DAILY 01/23/17 Allergies/Adverse Reactions: No Known Allergies Allergy (Verified 07/04/16 04:12) Review of Systems Constitutional: ABSENT: chills, fever(s), headache(s), weight gain, weight loss Eyes: ABSENT: visual disturbances Ears: ABSENT: hearing changes Cardiovascular: PRESENT: dyspnea on exertion. ABSENT: as per HPI, chest pain, edema, orthropnea, palpitations, other Respiratory: ABSENT: cough, hemoptysis Gastrointestinal: ABSENT: abdominal pain, constipation, diarrhea, hematemesis, hematochezia, nausea, vomiting Genitourinary: ABSENT: dysuria, hematuria Musculoskeletal: PRESENT: back pain. ABSENT: joint swelling Integumentary: ABSENT: rash, wounds Neurological: ABSENT: abnormal gait, abnormal speech, confusion, dizziness, focal weakness, syncope Psychiatric: ABSENT: anxiety, depression, homidical ideation, suicidal ideation Endocrine: ABSENT: cold intolerance, heat intolerance, menstrual abnormalities, polydipsia, polyuria Hematologic/Lymphatic: ABSENT: easy bleeding, easy bruising, lymphadenopathy Physical Exam Vital Signs: Temp Pulse Resp BP Pulse Ox 97.4 F 61 16 122/56 L 95 01/23/17 15:25 01/23/17 15:25 01/23/17 15:25 01/23/17 15:25 01/23/17 15:25 Intake & Output 01/22/17 01/23/17 01/24/17 06:59 06:59 06:59 Intake Total 128 Balance 128 Weight 65.3 kg General appearance: PRESENT: no acute distress, well-developed, well-nourished Head exam: PRESENT: atraumatic, normocephalic Eye exam: PRESENT: conjunctiva pink, EOMI, PERRLA Ear exam: PRESENT: normal external ear exam Mouth exam: PRESENT: moist, tongue midline Neck exam: PRESENT: full ROM Respiratory exam: PRESENT: clear to auscultation dianna Cardiovascular exam: PRESENT: RRR, +S1, +S2 Vascular exam: PRESENT: normal capillary refill GI/Abdominal exam: PRESENT: normal bowel sounds, soft Rectal exam: PRESENT: deferred Neurological exam: PRESENT: alert, awake, oriented to person, oriented to place , oriented to time, oriented to situation, CN II-XII grossly intact Psychiatric exam: PRESENT: appropriate affect, normal mood Skin exam: PRESENT: dry, intact, warm Results Laboratory Results: 01/23/17 11:41 01/23/17 11:41 01/23/17 01/23/17 11:41 11:41 WBC 5.4 RBC 4.11 Hgb 13.3 Hct 39.2 MCV 95 MCH 32.3 MCHC 33.9 RDW 12.7 Plt Count 252 Seg Neutrophils % 55.9 Lymphocytes % 30.9 Monocytes % 8.3 Eosinophils % 3.8 Basophils % 1.1 Absolute Neutrophils 3.0 Absolute Lymphocytes 1.7 Absolute Monocytes 0.5 Absolute Eosinophils 0.2 Absolute Basophils 0.1 Sodium 141.7 Potassium 4.5 Chloride 107 Carbon Dioxide 24 Anion Gap 11 BUN 11 Creatinine 0.83 Est GFR ( Amer) > 60 Est GFR (Non-Af Amer) > 60 Glucose 95 Calcium 9.5 Total Bilirubin 0.5 AST 24 ALT 30 Alkaline Phosphatase 98 Total Protein 7.5 Albumin 4.3 01/23/17 01/23/17 11:41 11:41 Creatine Kinase 120 CK-MB (CK-2) 1.67 Troponin I < 0.012 Impressions: Chest X-Ray 01/23/17 00:00 IMPRESSION: Apical scarring. No acute pulmonary disease. Lumbar Spine MRI 01/23/17 00:00 IMPRESSION: Grade 1 spondylolisthesis L5 on S1 with bilateral spondylolysis. L5-S1 degenerative disc with moderate narrowing of the exit foramina. Old T12 compression fracture with retropulsion inferiorly at the T12-L1 disc space. Mild central canal stenosis and moderate exit foraminal stenosis left greater than right. Assessment & Plan - Diagnosis (1) Anginal equivalent Is this a current diagnosis for this admission?: YesPlan: She has progressive shortness of breath, the differential diagnosis would include, progressive COPD, ischemic heart disease, pulmonary embolism. The oxygen saturation is quite good at 95 the d-dimer is normal, this makes pulmonary embolism unlikely. She is not overly wheezing this makes COPD exacerbation unlikely, a Cardiolite Lexiscan stress will be ordered for the morning after the PR rule out with enzymes (2) Osteoporotic compression fracture of spine Qualifiers: Encounter type: sequela Qualified Code(s): M80.88XS - Other osteoporosis with current pathological fracture, vertebra(e), sequela Is this a current diagnosis for this admission?: Yes (4) T12 compression fracture Qualifiers: Encounter type: subsequent encounter Is this a current diagnosis for this admission?: Yes (5) COPD (chronic obstructive pulmonary disease) Qualifiers: COPD type: unspecified COPD Qualified Code(s): J44.9 - Chronic obstructive pulmonary disease, unspecified Is this a current diagnosis for this admission?: Yes (6) Stented coronary artery Is this a current diagnosis for this admission?: Yes
[2017-01-23] MEDS: ACETAMINOPHEN 325 MG TABLET PO PRN (20:47)
[2017-01-23 20:59] LABS: CREATINE KINASE MB 1.51 ng/mL (<4.55)
[2017-01-23] MEDS ORDERED: ENOXAPARIN SODIUM INJ 40 MG/0.4 ML DISP.SYRIN SUBCUT ONE (21:00)
[2017-01-23 21:03] LABS: TROPONIN I < 0.012 ng/mL
[2017-01-23] MEDS ORDERED: ATORVASTATIN CALCIUM 20 MG TABLET PO SCH (22:00)
[2017-01-23 22:02] LABS: HEMATOCRIT 37.3 % (36.0-47.0); HEMOGLOBIN 12.8 g/dL (12.0-15.5); HGB HCT DIFFERENCE 1.1; MEAN CORPUSCULAR HEMOGLOBIN 32.6 pg (27.0-33.4); MEAN CORPUSCULAR HGB CONC 34.2 g/dL (32.0-36.0); MEAN CORPUSCULAR VOLUME 95 fl (80-97); RED BLOOD COUNT 3.91 10^6/uL (3.72-5.28); RED CELL DISTRIBUTION WIDTH 12.4 % (11.5-14.0); WHITE BLOOD COUNT 6.4 10^3/uL (4.0-10.5)
[2017-01-23 22:13] LABS: PROTHROMBIN TIME 13.3 SEC (11.4-15.4)
[2017-01-23 22:21] LABS: CREATININE RESULT 0.79 mg/dL (0.52-1.25)
[2017-01-24] MEDS: ACETAMINOPHEN 325 MG TABLET PO PRN (00:23)
--- NOTE | 2017-01-24 08:26 | Physician Advisory Note ---
Physician Advisor ProgressNote .: Pursuant to the plan for [facility], I have reviewed the medical record for this patient. Physician Advisor Statement: Very nicely documented clinical thinking/co-morbidities, appropriate for Outpt Obs status. CK
[2017-01-24] MEDS ORDERED: (PENDING PHARMACY ID) (Umeclidinium Brm/Vilanterol Tr [Anoro Ellipta 62.5-25 Mcg Inh] 1 EA IH SCH (10:00)
[2017-01-24] MEDS ORDERED: CHOLECALCIFEROL (D3) 1,000 UNIT TABLET PO SCH (10:00)
[2017-01-24] MEDS ORDERED: METOPROLOL SUCCINATE 50 MG TAB.SR.24H PO SCH (10:00)
[2017-01-24] MEDS ORDERED: ASPIRIN 81 MG TABLET, ENT COATED PO SCH (10:00)
[2017-01-24] MEDS ORDERED: CLOPIDOGREL BISULFATE 75 MG TABLET PO SCH (10:00)
[2017-01-24] MEDS ORDERED: ENOXAPARIN SODIUM INJ 40 MG/0.4 ML DISP.SYRIN SUBCUT SCH (10:00)
[2017-01-24] MEDS ORDERED: ERGOCALCIFEROL 2000 UNIT PO SCH (10:00)
[2017-01-24] MEDS ORDERED: FAMOTIDINE 20 MG TABLET PO SCH (10:00)
--- NOTE | 2017-01-24 12:48 | DRAGON STRESS TEST REPORT ---
INTRAVENOUS LEXISCAN CARDIOLITE STRESS TEST USING SINGLE PHOTON EMMISION COMPUTERIZED TOMOGRAPHIC. DATE OF PROCEDURE: January 24, 2017 INDICATION : Chest pain CARDIAC RISK FACTORS: Hypertension, dyslipidemia, tobacco abuse RESTING EKG: Sinus rhythm with left bundle branch block pattern STRESS EKG: No significant changes noted with LexiScan bolus REASON FOR TERMINATION: Protocol. PROCEDURE REPORT: Baseline heart rate 62 beats per minute with blood pressure of 137/67. Patient had no significant complaints. Heart rate at 2 minutes post bolus 72 with a blood pressure of 145/62. 3 minutes post bolus heart rate 75 with blood pressure of 135/64. No significant EKG changes were noted. Patient had no significant complaints during the procedure or postprocedure. Patient injected with Aminophyllin 75 mg at 3 minutes or later after Lexiscan bolus. CONCLUSIONS: Normal EKG and hemodynamic response to IV LexiScan. NUCLEAR DATA: At rest the patient was given 10.61 millicuries of technetium 99 sestamibi injected intravenously. As per protocol rest gated SPECT images were obtained. Subsequently the patient was given intravenous LexiScan at a dose of 0.4 mg in 5 mL intravenously, followed by flush with normal saline. Subsequently the stress dose of 32.2 millicuries of technetium 99 sestamibi was injected intravenously. As per protocol stress gated images were obtained. NUCLEAR INTERPRETATION: Both raw and processed data were used for interpretation. Visual, qualitative, computer-generated quantitative data was used. There was good myocardial uptake of technetium compound. Motion artifact and soft tissue attenuations were noted. Increased visceral uptake was noted. No definitive areas of transient perfusion defect noted, except for mild decreased uptake in the distal anterior wall in the stress images which is felt to be related to differences in breast attenuation but cannot exclude an area of mild ischemia. No definitive areas of fixed perfusion defect or scars noted. EKG gated imaging showed LV EF at 65 %, rest and stress gated EF similar visually. No definite regional wall motion abnormalities were noted. T. I D. ratio was 0.76. Lung heart ratio noted to be within normal limits 0.33. No significant extracardiac and abnormal radiotracer activities were noted. RV free wall uptake was noted to be WNL. IMPRESSION: Also refer to comments under nuclear interpretation. Also test results needs to be interpreted in the context of pretest probability. 1. No definitive areas of transient perfusion defect noted, except for mild decreased uptake in the distal anterior wall (SDS1) in the stress images which is felt to be related to differences in breast attenuation but cannot exclude an area of mild ischemia. Clinical correlation requested. 2. There is no definitive scintigraphic evidence of myocardial infarction/scar. 3. EKG gated imaging shows left ejection fraction of approximately 65 %. 4. Clinical correlation requested as occasionally single vessel disease or balanced ischemia could be missed. In approximately 10% of the cases Lexiscan may not cause adequate vasodilatory stress. RECOMMENDATIONS: Aggressive risk factor modification, medical therapy. Clinical correlation with echocardiogram derived ejection fraction. Inability to exercise by itself can lead to increased cardiovascular event risks. Consider cardiology consultation and or follow-up if clinically indicated. I AM AVAILABLE FOR CARDIOLOGY CONSULTATION AND FOLLOWUP IF REQUESTED BY PMRobin Orta M.D., ROBERTA [employer] Department Manager well point pumping supervisor, Board certified in cardiovascular diseases, Nuclear cardiology, Echocardiography Cardiac CT and cardiac MRI Ph. [phone] LILIANA
[2017-01-24] MEDS ORDERED: REGADENOSON INJ 0.4 MG/5 ML DISP.SYRIN IV ONE (13:14)
[2017-01-24] MEDS ORDERED: AMINOPHYLLINE INJ/PF 250 MG/10 ML SDV IV ONE (13:14)
--- NOTE | 2017-01-24 17:42 | PDOC DISCHARGE SUMMARY ---
General - Admit/Disc Date/PCP Admission Date/Primary Care Provider: 01/23/17 10:19 RICHARD LOPEZ MD Discharge Date: 01/24/17 - Discharge Diagnosis (1) Anginal equivalent Is this a current diagnosis for this admission?: Yes (2) Osteoporotic compression fracture of spine Is this a current diagnosis for this admission?: Yes (3) CAD (coronary artery disease) Is this a current diagnosis for this admission?: Yes (4) T12 compression fracture Is this a current diagnosis for this admission?: Yes (5) COPD (chronic obstructive pulmonary disease) Is this a current diagnosis for this admission?: Yes (6) Stented coronary artery Is this a current diagnosis for this admission?: Yes (7) Left bundle branch block (LBBB) Is this a current diagnosis for this admission?: Yes - Additional Information Discharge Diet: As Tolerated Discharge Activity: Activity As Tolerated Home Medications: Albuterol Sulfate [Ventolin Hfa] 2 puff IN Q4HP PRN 07/04/16 Aspirin [Ecotrin] 81 mg PO DAILY 07/04/16 Atorvastatin Calcium 20 mg PO QHS 07/04/16 Metoprolol Succinate 50 mg PO DAILY 07/04/16 Nitroglycerin 0.3 mg SL PRN PRN 07/04/16 Ergocalciferol (Vitamin D2) [Vitamin D2] 2,000 units PO DAILY 01/23/17 Famotidine [Pepcid 20 mg Tablet] 20 mg PO DAILY 01/23/17 Alendronate Sodium [Fosamax 70 mg Tablet] 1 tab PO ACBRKFST #12 tablet 01/24/17 Umeclidinium Brm/Vilanterol Tr [Anoro Ellipta 62.5-25 Mcg INH] 1 each IH DAILY # 3 disk.w.dev 01/24/17 History of Present Illness History of Present Illness: SUE ROBLEDO is a 76 year old female, She came to the office today for evaluation of progressive shortness of breath on mild exertion, she has a history of chronic obstructive pulmonary disease, coronary artery disease with stent placement. In the office she was evaluated the oxygen saturation on digital pulse oximetry was 95%, the 12-lead EKG was done in the office, it showed sinus rhythm with left bundle branch block. She does not know if she was diagnosed with left bundle branch block previously, I have no old EKG to compare with in the office, because of the history of coronary artery disease and the fact that she has progressive shortness of breath with left bundle branch block I thought the prudent plan of care for this patient at this time will be to admit her for observation and evaluation in the hospital ,so she was admitted directly from the office to the hospital for management. The 12- lead EKG that was done in the hospital is also sinus rhythm with left bundle branch block but this was compared to previous EKG that was done in the hospital and apparently she has a history of left bundle branch block. She also complained of back pain with radicular symptoms going down the legs ,MRI of the lumbar spine was done without contrast it showed old anterior wedge compression fracture at T12, she has a history of osteoporosis so this is probably osteoporotic compression fracture of thoracic spine. The lumbar spine did not show any significant spinal stenosis at all levels except at L5-S1 there is degenerative disc disease. Broad based bulge with moderate narrowing of the exit foramina no spinal stenosis. Hospital Course Hospital Course: Patient was admitted for observation and evaluation of progressive shortness of breath, a Lexiscan Cardiolite stress test was done it was negative for any reversible ischemia the ejection fraction was 65%. Physical Exam Vital Signs: Temp Pulse Resp BP Pulse Ox 97.6 F 61 16 112/59 L 94 01/24/17 15:54 01/24/17 15:54 01/24/17 15:54 01/24/17 15:54 01/24/17 15:54 Intake & Output 01/23/17 01/24/17 01/25/17 06:59 06:59 06:59 Intake Total 493 Output Total 850 Balance -357 Weight 65.3 kg General appearance: PRESENT: no acute distress, well-developed, well-nourished Head exam: PRESENT: atraumatic, normocephalic Eye exam: PRESENT: conjunctiva pink, EOMI, PERRLA Ear exam: PRESENT: normal external ear exam Mouth exam: PRESENT: moist, tongue midline Neck exam: PRESENT: full ROM Respiratory exam: PRESENT: clear to auscultation dianna Cardiovascular exam: PRESENT: RRR, +S1, +S2 Vascular exam: PRESENT: normal capillary refill GI/Abdominal exam: PRESENT: normal bowel sounds, soft Rectal exam: PRESENT: deferred Neurological exam: PRESENT: alert, awake, oriented to person, oriented to place , oriented to time, oriented to situation, CN II-XII grossly intact. ABSENT: motor sensory deficit Psychiatric exam: PRESENT: appropriate affect, normal mood Skin exam: PRESENT: dry, intact, warm Results Laboratory Results: 01/23/17 21:52 01/23/17 21:52 01/23/17 01/23/17 21:52 21:52 WBC 6.4 RBC 3.91 Hgb 12.8 Hct 37.3 MCV 95 MCH 32.6 MCHC 34.2 RDW 12.4 Plt Count 236 Creatinine 0.79 Est GFR ( Amer) > 60 Est GFR (Non-Af Amer) > 60 01/23/17 01/23/17 01/23/17 11:41 11:41 19:56 Creatine Kinase 120 94 CK-MB (CK-2) 1.67 Troponin I < 0.012 01/23/17 01/24/17 01/24/17 19:56 12:00 12:00 Creatine Kinase 108 CK-MB (CK-2) 1.51 Troponin I < 0.012 < 0.012 Impressions: Chest X-Ray 01/23/17 00:00 IMPRESSION: Apical scarring. No acute pulmonary disease. Lumbar Spine MRI 01/23/17 00:00 IMPRESSION: Grade 1 spondylolisthesis L5 on S1 with bilateral spondylolysis. L5-S1 degenerative disc with moderate narrowing of the exit foramina. Old T12 compression fracture with retropulsion inferiorly at the T12-L1 disc space. Mild central canal stenosis and moderate exit foraminal stenosis left greater than right.
[2017-01-24 17:44] VITALS: BP 143/66
== END 2017-01-24 18:30 | disposition home or self-care (01) ==
LOC: 3N 10:19
PROVIDERS: ADMIT Internal Medicine; ATTEND Internal Medicine
DX: I25.118 Atherosclerotic heart disease of native coronary artery with other forms of angina pectoris (principal); M80.88XS Other osteoporosis with current pathological fracture, vertebra(e), sequela; I44.7 Left bundle-branch block, unspecified; J44.9 Chronic obstructive pulmonary disease, unspecified; Z95.5 Presence of coronary angioplasty implant and graft; M51.37 Other intervertebral disc degeneration, lumbosacral region; M19.90 Unspecified osteoarthritis, unspecified site; Z79.899 Other long term (current) drug therapy; Z79.82 Long term (current) use of aspirin; Z87.891 Personal history of nicotine dependence
CPT/HCPCS: 36415 ×2; 82553; 82550 ×2; 82565; 85025; 85027; 85610; 85730; 80076; 80048; 84484 ×2; 85379; 93017; 72148; 71010; 78452; 93005; 93010; A9500; J2785; A9270 ×7; J1650 ×2; J0280; Q9969; G0378; G0379; J3490

== ENCOUNTER → 2017-02-02 | Outpatient (CLI) | payer MEDICARE, MEDICAID ==
--- NOTE | 2017-02-02 15:50 | RADIOLOGY REPORT (SQ) ---
EXAM DESCRIPTION: VENOUS UNILATERAL LOWER COMPLETED DATE/TIME: 02/02/2017 3:32 pm REASON FOR STUDY: RLE SWELLING R22.41 R22.41 LOCALIZED SWELLING, MASS AND LUMP, RIGHT LOWER LIMB COMPARISON: None. TECHNIQUE: Dynamic and static pickering scale and color images acquired of the right leg venous system. S elected spectral images acquired with additional compression and augmentation maneuvers. The contrala teral common femoral vein and saphenofemoral junction were also imaged. Images stored on PACS. LIMITATIONS: None. FINDINGS: COMMON FEMORAL: Normal phasicity, compression and augmentation. No visualized echogenic ma terial on pickering scale. No defects on color images. FEMORAL: Normal compression and augmentation. No visualized echogenic material on pickering scale. No defe cts on color images. POPLITEAL: Normal compression, augmentation. No visualized echogenic material on pickering scale. No defec ts on color images. CALF VESSELS: Normal compression, augmentation. No visualized echogenic material on pickering scale. No de fects on color images. GSV and SSV: Normal compression, augmentation. No visualized echogenic material on pickering scale. No def ects on color images. ANY DEEP VENOUS INSUFFICIENCY: Not evaluated. ANY EVIDENCE OF POPLITEAL CYST: No. OTHER: No other significant finding. CONTRALATERAL COMMON FEMORAL VEIN AND SAPHENOFEMORAL JUNCTION: Normal phasicity, compression and augmentation. No visualized echogenic material on pickering scale. No de fects on color images. IMPRESSION: NO EVIDENCE DVT OR SVT IN THE RIGHT LEG. COMMENT: Preliminary report was called by the technologist to the referring clinician's office at th e time of patient visit. TECHNICAL DOCUMENTATION: JOB ID: [id number] [employer]- All Rights Reserved
== END ==
LOC: SP 14:42
PROVIDERS: ATTEND Internal Medicine
DX: R22.41 Localized swelling, mass and lump, right lower limb (principal)
CPT/HCPCS: 93971

== ENCOUNTER → 2017-02-04 | Outpatient (CLI) | payer MEDICARE, MEDICAID ==
--- NOTE | 2017-02-06 13:36 | RADIOLOGY REPORT (SQ) ---
EXAM DESCRIPTION: MRI RT LOWER EXTREMITY WITHOUT COMPLETED DATE/TIME: 02/04/2017 10:22 am REASON FOR STUDY: LOCALIZED SWELLING, MASS AND LUMP RT LOWER LIMB R22.41 LOCALIZED SWELLING, MASS A ND LUMP, RIGHT LOWER LIMB COMPARISON: None. TECHNIQUE: Multiplanar imaging to include fat and fluid sensitive sequences. A marker was placed in the area of interest. RENAL FUNCTION: Not applicable. No contrast given. LIMITATIONS: None. FINDINGS: There is abundant adipose tissue but no definitive mass is identified. Regional marrow si gnal is normal. Incidental ruptured Ceja's cyst. IMPRESSION: No mass identified. TECHNICAL DOCUMENTATION: JOB ID: [id number] [employer]- All Rights Reserved
== END ==
LOC: RAD 08:05
PROVIDERS: ATTEND Internal Medicine
DX: R22.41 Localized swelling, mass and lump, right lower limb (principal)

== ENCOUNTER 2017-10-10 23:11 | Emergency (ER) | payer MEDICARE, MEDICAID ==
[2017-10-11] MEDS ORDERED: ONDANSETRON 4 MG TAB.RAPDIS PO ONE (00:47)
[2017-10-11] MEDS ORDERED: MECLIZINE HCL 25 MG TABLET PO ONE (00:47)
[2017-10-11 01:10] LABS: ABSOLUTE BASOPHILS # (AUTO) 0.1 10^3/uL (0.0-0.2); ABSOLUTE EOSINOPHILS # (AUTO) 0.1 10^3/uL (0.0-0.6); ABSOLUTE LYMPHOCYTES (AUTO) 1.3 10^3/uL (0.5-4.7); ABSOLUTE MONOCYTES (AUTO) 0.7 10^3/uL (0.1-1.4); ABSOLUTE NEUT (AUTO) 5.2 10^3/uL (1.7-8.2); BASOPHILS % (AUTO) 0.8 % (0-2); EOSINOPHILS % (AUTO) 1.8 % (0-6); HEMATOCRIT 38.7 % (36.0-47.0); LYMPHOCYTES % (AUTO) 17.2 % (13-45); MEAN CORPUSCULAR HEMOGLOBIN 31.3 pg (27.0-33.4); MEAN CORPUSCULAR HGB CONC 33.7 g/dL (32.0-36.0); MEAN CORPUSCULAR VOLUME 93 fl (80-97); PLATELET COUNT 254 10^3/uL (150-450); RED BLOOD COUNT 4.16 10^6/uL (3.72-5.28); RED CELL DISTRIBUTION WIDTH 12.9 % (11.5-14.0); SEGMENTED NEUTROPHILS % (AUTO) 70.2 % (42-78); TOTAL CELLS COUNTED % (AUTO) 100 %; WHITE BLOOD COUNT 7.4 10^3/uL (4.0-10.5)
--- NOTE | 2017-10-11 01:14 | ER Document Report ---
ED General - General Chief Complaint: Dizziness Stated Complaint: DIZZY, UPSET STOMACH Time Seen by Provider: 10/11/17 00:39 Notes: Patient is a 77-year-old female presents with complaint of spinning type dizziness. Says worse when she sits up. She says she is fine if she is lying flat. She says it has been off and on now for several days. His symptoms started shortly after being placed on isosorbide mononitrate. Last Monday she had a heart cath which showed no concerning lesions. She has chronic recurrent chest pain and therefore she was placed on isosorbide mononitrate. She denies any fevers. No vomiting. No headache. No abdominal pain. No focal weakness or numbness. No other complaints at this time. Is not on blood thinning medications other than daily baby aspirin. TRAVEL OUTSIDE OF THE [place] IN LAST 30 DAYS: No - Related Data Allergies/Adverse Reactions: No Known Allergies Allergy (Verified 07/04/16 04:12) Past Medical History - Social History Smoking Status: Unknown if Ever Smoked Frequency of alcohol use: None Drug Abuse: None Family History: None - Past Medical History Cardiac Medical History: Reports: Hx Coronary Artery Disease, Hx Hypercholesterolemia, Hx Hypertension Denies: Hx Congestive Heart Failure, Hx DVT, Hx Heart Attack, Hx Pulmonary Embolism Pulmonary Medical History: Reports: Hx COPD Neurological Medical History: Denies: Hx Seizures Endocrine Medical History: Denies: Hx Diabetes Mellitus Type 1, Hx Diabetes Mellitus Type 2, Hx Hyperthyroidism, Hx Hypothyroidism GI Medical History: Denies: Hx Cirrhosis, Hx Gastroesophageal Reflux Disease, Hx Hepatitis Musculoskeltal Medical History: Reports Hx Arthritis Skin Medical History: Denies Hx Eczema, Denies Hx Psoriasis Psychiatric Medical History: Denies: Hx Depression Infectious Medical History: Denies: Hx Hepatitis Past Surgical History: Reports: Hx Cardiac Surgery - LAD Stent, Hx Coronary Stent, Hx Tubal Ligation Review of Systems - Review of Systems Notes: My Normal Review Basic REVIEW OF SYSTEMS: CONSTITUTIONAL : Denies fever, chills, or sweats. Denies recent illness. EENT: Denies eye, ear, throat, or mouth pain or symptoms. Denies nasal or sinus congestion. CARDIOVASCULAR: Intermittent chronic chest pain. RESPIRATORY: Denies cough, cold, or chest congestion. Denies shortness of breath, difficulty breathing, or wheezing. GASTROINTESTINAL: Denies abdominal pain. Some vomiting with the dizziness. MUSCULOSKELETAL: Denies neck or back pain or joint pain or swelling. SKIN: Denies rash or skin lesions. HEMATOLOGIC : Denies easy bruising or bleeding. NEUROLOGICAL: Denies altered mental status or loss of consciousness. Denies headache. Denies weakness or paralysis or loss of use of either side. Denies problems with gait or speech. Denies sensory or motor loss. ALL OTHER SYSTEMS REVIEWED AND NEGATIVE. Physical Exam - Vital signs Vitals: Temp Pulse Resp BP Pulse Ox 97.5 F 58 L 16 144/69 H 95 10/10/17 23:23 10/10/17 23:23 10/10/17 23:23 10/10/17 23:23 10/10/17 23:23 - Notes Notes: General Appearance: Well nourished, alert, cooperative, no acute distress, no obvious discomfort. Holding emesis bag because of nausea. Vitals: reviewed, See vital signs table. Head: no swelling or tenderness to the head Eyes: PERRL, EOMI, Conjuctiva clear Mouth: No decreasd moisture Throat: No tonsillar inflammation, No airway obstruction, No lymphadenopathy Lungs: No wheezing, No rales, No rhonci, No accessory muscle use, good air exchange bilaterally. Heart: Normal rate, Regular rythm, No murmur, no rub Abdomen: Normal BS, soft, No rigidity, No abdominal tenderness, No guarding, no rebound, no abdominal masses, no organomegaly Extremities: strength 5/5 in all extremities, good pulses in all extremities, no swelling or tenderness in the extremities, no edema. Skin: warm, dry, appropriate color, no rash Neuro: speech clear, oriented x 3, normal affect, responds appropriately to questions. Cranial nerves II through XII are intact. Distal sensation intact. Patient does get some vertigo when sitting up on exam. She has mild lateral nystagmus that is fatigable. No vertical nystagmus. No focal weakness or numbness in her extremities. Course - Re-evaluation Re-evalutation: 10/11/17 01:43 Patient's dizziness is much improved after receiving the meclizine. I am awaiting to receive the results of her heart cath from [facility]. We have requested these records. I want to make sure that she did not have any concerning coronary lesions before deciding to potentially hold her isosorbide. 10/11/17 04:00 Patient's dizziness continues to well. She is walking around the room and into the prasad without any difficulties. She has no gait disturbance. She has no focal neurologic deficits or headache. Her vertigo is easily reproducible with sitting up. I did look up vertigo caused by a steroid. It appears that close to 5% of people who take as Sorbide will develop some vertigo. Her symptoms started when she started taking this medication. I did obtain her heart cath records from [facility]. Her heart cath showed that her LAD stent was patent and that she had just a 30% lesion in the left circumflex artery as well as a 30 -50% lesion in the LAD. Otherwise her cath was normal. At this time I will have her hold the isosorbide. She still has her subungual nitro. Informed her to take this as needed for chest pain. I informed her that if she has recurrent chest pain or chest pain that is more intense or longer lasting than her chronic chest pain that she must return to ER for further evaluation. She has a follow-up appointment with her doctor tomorrow. I informed her to talk to her doctor about the isosorbide and if they want to change it to something different. Patient and [id number] agree with plan and patient will be discharged home. Dictation of this chart was performed using voice recognition software; therefore, there may be some unintended grammatical errors. - Vital Signs Vital signs: Temp Pulse Resp BP Pulse Ox 97.5 F 58 L 17 128/75 H 95 10/10/17 23:23 10/10/17 23:23 10/11/17 03:01 10/11/17 03:01 10/10/17 23:23 - Laboratory Result Diagrams: 10/11/17 00:55 10/11/17 00:55 Laboratory results interpreted by me: 10/11/17 00:55 Glucose 120 H - EKG Interpretation by Me Additional EKG results interpreted by me: 10/11/17 01:13 EKG is reviewed and interpreted by me. EKG shows sinus rhythm with rate of 58 bpm. Patient does have a left bundle branch block which is unchanged comparison to her old EKG from January 23, 2017. [place] interval, QTc intervals are within normal range. QRS duration is prolonged. Discharge - Discharge Clinical Impression: Vertigo Condition: Good Disposition: HOME, SELF-CARE Additional Instructions: Please hold the Isosorbide medication until you discuss this further with your doctor this week. Please take your sublingual nitro as needed for chest pain. Please return to the ER immediately if you have increasing in frequency in chest pain, chest pain not improved with the nitro, recurrent vomiting, difficulty breathing, or if you have any further concerns. Prescriptions: Meclizine HCl 25 mg PO Q8 PRN #20 tablet PRN Reason: Dizziness Ondansetron [Zofran Odt 4 mg Tablet] 1 tab PO Q4H PRN #15 tab.rapdis PRN Reason: For Nausea/Vomiting Referrals: RICHARD LOPEZ MD [Primary Care Provider] - 10/12/17
[2017-10-11 01:23] LABS: ALANINE AMINOTRANSFERASE 38 U/L (9-52); ALBUMIN 4.1 g/dL (3.5-5.0); ALKALINE PHOSPHATASE 93 U/L (38-126); ANION GAP 9 (5-19); ASPARTATE AMINO TRANSFERASE 25 U/L (14-36); BILIRUBIN,DIRECT 0.4 mg/dL (0.0-0.4); BILIRUBIN,TOTAL 0.4 mg/dL (0.2-1.3); BLOOD UREA NITROGEN 17 mg/dL (7-20); CALCIUM 9.6 mg/dL (8.4-10.2); CARBON DIOXIDE 30 mmol/L (22-30); CHLORIDE 102 mmol/L (98-107); GLUCOSE 120 mg/dL (75-110); POTASSIUM 4.5 mmol/L (3.6-5.0); SODIUM 140.7 mmol/L (137-145); TOTAL PROTEIN 7.2 g/dL (6.3-8.2)
[2017-10-11 03:03] VITALS: BP 128/75
[2017-10-11] MEDS ORDERED: ONDANSETRON ODT 4 MG TAB (6 TAB/ER DISP) PO PRN (03:58)
--- NOTE | 2017-10-11 07:27 | EKG REPORT ---
SEVERITY:- ABNORMAL ECG - SINUS RHYTHM LEFT BUNDLE BRANCH BLOCK : Confirmed by: Ciro Romero MD 11-Oct-2017 07:27:07
== END 2017-10-11 04:13 | disposition home or self-care (01) ==
LOC: ER 23:11
DX: R42 Dizziness and giddiness (principal); I25.10 Atherosclerotic heart disease of native coronary artery without angina pectoris; E78.00 Pure hypercholesterolemia, unspecified; I10 Essential (primary) hypertension; J44.9 Chronic obstructive pulmonary disease, unspecified; Z98.51 Tubal ligation status
CPT/HCPCS: 93005; 99284; 36415; 83735; 85025; 80053; 93010; A9270 ×3; S0119

== ENCOUNTER → 2018-01-11 | Outpatient (CLI) | payer MEDICARE, MEDICAID ==
--- NOTE | 2018-01-11 15:11 | WOMENS IMAGING REPORT ---
EXAM DESCRIPTION: 3D SCREENING MAMMO BILAT COMPLETED DATE/TIME: 01/11/2018 11:21 am REASON FOR STUDY: SCREENING MAMMO Z12.31 ENCNTR SCREEN MAMMOGRAM FOR MALIGNANT NEOPLASM OF ADALID COMPARISON: 11/14/2016 TECHNIQUE: Standard craniocaudal and mediolateral oblique views of each breast recorded using digita l acquisition and breast tomosynthesis. LIMITATIONS: None. FINDINGS: No masses, calcifications or architectural distortion. No areas of suspicion. Read with the assistance of CAD. .[facility] - R2 Cenova Version 1.3 .[facility] Imaging - R2 Cenova Version 1.3 .[facility] Imaging - R2 Cenova Version 2.4 .[facility] - R2 Cenova Version 2.4 .[facility] - R2 [employer]er Version 9.2 IMPRESSION: NORMAL MAMMOGRAM. BIRADS 1. BREAST DENSITY: c. The breasts are heterogeneously dense, which may obscure small masses. BIRAD: 1 NEGATIVE RECOMMENDATION: ROUTINE SCREENING Please continue yearly bilateral screening mammography/tomosynthesis in December 2018 COMMENT: The patient has been notified of the results by letter per MQSA requirements. Additional no tification policies are in place for contacting patient with suspicious or incomplete findings. Quality ID #[id number]: The [employer] [place] [employer] recommends an annual screening mammogram for women aged 40 years or over. This facility utilizes a reminder system to ensure that all patients receive reminder letters, and/or direct phone calls for appointments. This includes reminders for routine scr eening mammograms, diagnostic mammograms, or other Breast Imaging Interventions when appropriate. Th is patient will be placed in the appropriate reminder system. The [place] [employer] (ACR) has developed recommendations for screening MRI of the breast s in certain patient populations, to be used in conjunction with mammography. Breast MRI surveillanc e may be appropriate for women with more than 20% lifetime risk of developing breast cancer as deter mined by genetic testing, significant family history of the disease, or history of mantle radiation f or Hodgkins Disease. ACR Practice Guidelines 2008. DBT Technology DBT is a type of tomographic mammography. With conventional mammography, overlapping breast tissue ma y make lesions difficult to detect, even with good compression. DBT uses an x-ray tube that rotates a round the breast, taking images at different angles. These images are then combined to create thin sl ices of the breast that the radiologist can view as a 3D reconstruction. The [employer] unit can perform full-field digital mammograms (2D imaging); or DBT (3D imaging); or both, in a combination mode that quickly performs both the mammogram and the tomosynthesis scan while the breast is still compressed. PQRS 6045F: Fluoroscopic imaging is not utilized for breast tomosynthesis. TECHNICAL DOCUMENTATION: FINDING NUMBER: (1) ASSESSMENT: (1) JOB ID: [id number] [employer]- All Rights Reserved Reading location - IP/workstation name: [email or web address]
== END ==
LOC: WI 11:03
PROVIDERS: ATTEND Internal Medicine
DX: Z12.31 Encounter for screening mammogram for malignant neoplasm of breast (principal)
CPT/HCPCS: 77063; 77067

== ENCOUNTER → 2018-01-29 | Outpatient (CLI) | payer MEDICARE, MEDICAID ==
--- NOTE | 2018-01-29 12:16 | WOMENS IMAGING REPORT ---
EXAM DESCRIPTION: U/S ABDOMEN LIMITED COMPLETED DATE/TIME: 01/29/2018 10:26 am REASON FOR STUDY: R10.13 EPI PAIN R10.13 EPIGASTRIC PAIN COMPARISON: None. TECHNIQUE: Dynamic and static grayscale images acquired of the abdomen and recorded on PACS. Additio nal selected color Doppler and spectral images recorded. LIMITATIONS: None. FINDINGS: PANCREAS: No masses. Visualized pancreatic duct normal caliber. LIVER: No masses. Echotexture normal. LIVER VASCULATURE: Normal directional flow of the main portal vein and hepatic veins. GALLBLADDER: No stones. Normal wall thickness. No pericholecystic fluid. ULTRASOUND-DETECTED SMART'S SIGN: Negative. INTRAHEPATIC DUCTS AND COMMON DUCT: CBD and intrahepatic ducts normal caliber. No filling defects. INFERIOR VENA CAVA: Normal flow. AORTA: No aneurysm. RIGHT KIDNEY: Normal size. Normal echogenicity. No solid or suspicious masses. No hydronephrosis. No calcifications. PERITONEAL AND RIGHT PLEURAL SPACE: No ascites or effusions. OTHER: No other significant findings. IMPRESSION: NORMAL RIGHT UPPER QUADRANT ULTRASOUND. TECHNICAL DOCUMENTATION: JOB ID: [id number]- All Rights Reserved Reading location - IP/workstation name: [email or web address]
== END ==
LOC: WI 09:44
PROVIDERS: ATTEND Internal Medicine Gastroenterology
DX: R10.13 Epigastric pain (principal)
CPT/HCPCS: 76705

== ENCOUNTER 2018-02-16 11:32 | Emergency (ER) | payer MEDICARE, MEDICAID ==
[2018-02-16] MEDS ORDERED: ASPIRIN 81 MG TABLET, CHEWABLE PO ONE (11:38)
[2018-02-16 11:46] LABS: ABSOLUTE BASOPHILS # (AUTO) 0.1 10^3/uL (0.0-0.2); ABSOLUTE EOSINOPHILS # (AUTO) 0.1 10^3/uL (0.0-0.6); ABSOLUTE LYMPHOCYTES (AUTO) 2.1 10^3/uL (0.5-4.7); ABSOLUTE MONOCYTES (AUTO) 0.8 10^3/uL (0.1-1.4); ABSOLUTE NEUT (AUTO) 4.8 10^3/uL (1.7-8.2); BASOPHILS % (AUTO) 0.7 % (0-2); HEMATOCRIT 42.6 % (36.0-47.0); HEMOGLOBIN 14.5 g/dL (12.0-15.5); LYMPHOCYTES % (AUTO) 27.1 % (13-45); MEAN CORPUSCULAR HEMOGLOBIN 31.3 pg (27.0-33.4); MEAN CORPUSCULAR VOLUME 92 fl (80-97); MONOCYTES % (AUTO) 9.7 % (3-13); PLATELET COUNT 249 10^3/uL (150-450); RED BLOOD COUNT 4.63 10^6/uL (3.72-5.28); RED CELL DISTRIBUTION WIDTH 13.3 % (11.5-14.0); SEGMENTED NEUTROPHILS % (AUTO) 61.5 % (42-78); TOTAL CELLS COUNTED % (AUTO) 100 %; WHITE BLOOD COUNT 7.8 10^3/uL (4.0-10.5)
[2018-02-16 12:11] LABS: ALANINE AMINOTRANSFERASE 24 U/L (9-52); ALBUMIN 4.7 g/dL (3.5-5.0); ALKALINE PHOSPHATASE 85 U/L (38-126); ANION GAP 15 (5-19); ASPARTATE AMINO TRANSFERASE 29 U/L (14-36); BILIRUBIN,DIRECT 0.3 mg/dL (0.0-0.4); BILIRUBIN,TOTAL 0.8 mg/dL (0.2-1.3); BLOOD UREA NITROGEN 12 mg/dL (7-20); CALCIUM 9.6 mg/dL (8.4-10.2); CARBON DIOXIDE 26 mmol/L (22-30); CHLORIDE 103 mmol/L (98-107); CREATINE KINASE 132 U/L (30-135); GLUCOSE 109 mg/dL (75-110); POTASSIUM 4.1 mmol/L (3.6-5.0); SODIUM 143.8 mmol/L (137-145); TOTAL PROTEIN 8.5 g/dL (6.3-8.2)
--- NOTE | 2018-02-16 12:18 | RADIOLOGY REPORT (SQ) ---
EXAM DESCRIPTION: CHEST SINGLE VIEW COMPLETED DATE/TIME: 02/16/2018 11:52 am REASON FOR STUDY: cp COMPARISON: Chest film 07/03/2016, 01/23/2017 CT angio chest 07/04/2016 EXAM PARAMETERS: NUMBER OF VIEWS: One view. TECHNIQUE: Single frontal radiographic view of the chest acquired. RADIATION DOSE: NA LIMITATIONS: None. FINDINGS: LUNGS AND PLEURA: No acute infiltrates. No pleural effusion or pneumothorax. Stable biap ical pleural-parenchymal scarring. MEDIASTINUM AND HILAR STRUCTURES: No masses. Contour normal. HEART AND VASCULAR STRUCTURES: Heart normal in size. Normal vasculature. BONES: Osteopenic HARDWARE: None in the chest. OTHER: No other significant finding. IMPRESSION: No acute change TECHNICAL DOCUMENTATION: JOB ID: [id number] [employer]- All Rights Reserved Reading location - IP/workstation name: [email or web address]
[2018-02-16 12:26] LABS: CREATINE KINASE MB 1.53 ng/mL (<4.55)
--- NOTE | 2018-02-16 12:26 | EKG REPORT ---
SEVERITY:- ABNORMAL ECG - SINUS RHYTHM LEFT BUNDLE BRANCH BLOCK : Confirmed by: Ciro Romero MD 16-Feb-2018 12:26:03
[2018-02-16 12:30] LABS: TROPONIN I < 0.012 ng/mL
[2018-02-16] MEDS ORDERED: NITROGLYCERIN 0.4 MG/TAB 25 TAB/BOTTLE SL ONE (12:30)
[2018-02-16] MEDS ORDERED: NITROGLYCERIN 5 MG (0.2 MG/HR) PATCH.TD24 TD ONE (12:50)
--- NOTE | 2018-02-16 13:00 | ER Document Report ---
ED General - General Chief Complaint: Flank Pain Stated Complaint: CHEST PAIN Time Seen by Provider: 02/16/18 12:03 Mode of Arrival: Ambulatory TRAVEL OUTSIDE OF THE [place] IN LAST 30 DAYS: No - HPI Patient complains to provider of: pain in the chest and nausea Onset: Other - This 77-year-old female was having her baseline level of chronic back pain last night and through the night developed pain along the front of her body worse on the right side along her ribs which also caused her to have some episodes of nausea. She denied any loss of consciousness no weakness diaphoresis constipation fevers chills or recent illnesses. She has never had anything like this before. Son notes that she has had muscle soreness as a result of physical therapy in the past and this could be related to it. She has not taken anything to try and help with this pain nothing is seem to make it better or worse. - Related Data Allergies/Adverse Reactions: No Known Allergies Allergy (Verified 07/04/16 04:12) Past Medical History - General Information source: Patient - Social History Smoking Status: Former Smoker Frequency of alcohol use: None Drug Abuse: None Family History: None Patient has suicidal ideation: No Patient has homicidal ideation: No - Past Medical History Cardiac Medical History: Reports: Hx Coronary Artery Disease, Hx Hypercholesterolemia, Hx Hypertension Denies: Hx Congestive Heart Failure, Hx DVT, Hx Heart Attack, Hx Pulmonary Embolism Pulmonary Medical History: Reports: Hx COPD Neurological Medical History: Denies: Hx Seizures Endocrine Medical History: Denies: Hx Diabetes Mellitus Type 1, Hx Diabetes Mellitus Type 2, Hx Hyperthyroidism, Hx Hypothyroidism Renal/ Medical History: Denies: Hx Peritoneal Dialysis GI Medical History: Denies: Hx Cirrhosis, Hx Gastroesophageal Reflux Disease, Hx Hepatitis Musculoskeletal Medical History: Reports Hx Arthritis Skin Medical History: Denies Hx Eczema, Denies Hx Psoriasis Psychiatric Medical History: Denies: Hx Depression Infectious Medical History: Denies: Hx Hepatitis Past Surgical History: Reports: Hx Cardiac Catheterization, Hx Cardiac Surgery - LAD Stent, Hx Coronary Stent, Hx Tubal Ligation Review of Systems - Review of Systems -: Yes All other systems reviewed and negative Physical Exam - Vital signs Vitals: Pulse Ox 98 02/16/18 11:39 - General General appearance: Appears well In distress: None - HEENT Head: Normocephalic Eyes: Normal Conjunctiva: Normal Cornea: Normal Extraocular movements intact: Yes Eyelashes: Normal Pupils: PERRL - Respiratory Respiratory status: No respiratory distress Chest status: Tender, Other - Tenderness in the inferior aspect of the chest along the costal margin on the right Breath sounds: Normal Chest palpation: Normal - Cardiovascular Rhythm: Regular Heart sounds: Normal auscultation - Abdominal Inspection: Obese Distension: No distension Bowel sounds: Normal Tenderness: Other - Diffuse tenderness throughout the abdomen most pronounced in the right upper quadrant, no appreciable rebound no guarding - Back Back: Normal - Extremities General upper extremity: Normal inspection General lower extremity: Normal inspection - Neurological Neuro grossly intact: Yes Cognition: Normal Orientation: AAOx4 [place] Coma Scale Eye Opening: Spontaneous - Psychological Associated symptoms: Normal affect Course - Re-evaluation Re-evalutation: 02/16/18 12:59 Administer nitroglycerin sublingually this patient in the emergency department, her chest pain improved following administration of nitroglycerin. After some time her chest pain began to return, will administer nitroglycerin paste transdermally for symptom relief. 02/16/18 19:24 Patient continues to have pain, reevaluation the patient has pain primarily along her right costal margin. She is otherwise well-appearing, breathing spontaneously with no diaphoresis or symptoms. Is somewhat concerning for possible gallbladder etiology for abdominal pain as opposed to the initial workup started triage cardiac etiology. We will pursue ultrasound of the right upper quadrant. CMP CBC does not demonstrate any cause for her pain at this time she is negative troponin and unchanged EKG with known left bundle branch block. She has continued to have pain, will administer fentanyl for pain control. Right upper quadrant ultrasound does not demonstrate any obvious cholecystitis cholelithiasis or biliary sludging. Patient with persistent pain along the base of the right breast, given the pain will plan for CT imaging the abdomen and pelvis for possible atypical appendicitis and missed cholelithiasis or cholecystitis or other issue. CT abdomen and pelvis does not insert any obvious abnormality patient's symptoms are improved at this time, she is able tolerate p.o. says that she feels somewhat better. As this patient's been able tolerate p.o. her pain is improved she is a negative troponin unchanged EKG negative ultrasound and CT believe that she is likely safe for discharge at this time. We will plan for her to be discharged with return precautions and follow-up with Dr. Gardner. She is in agreement at this time with this plan. - Vital Signs Vital signs: Temp Pulse Resp BP Pulse Ox 18 110/77 96 02/16/18 14:16 02/16/18 14:16 02/16/18 14:16 - Laboratory Result Diagrams: 02/16/18 11:00 02/16/18 11:00 Laboratory results interpreted by me: 02/16/18 11:00 Total Protein 8.5 H Discharge - Discharge Clinical Impression: Rib pain on right side, Bloating Condition: Good Disposition: HOME, SELF-CARE Instructions: Abdominal Pain ([facility]), Chest Wall Pain ([facility]) Additional Instructions: You were seen today in the emergency room for your rib and abdominal pain, you had an evaluation including a physical exam as well as. Your blood work did not demonstrate an obvious cause for your pain. Your CT scan did not show any obvious blockages or injuries to other organs. Because of your well appearance overall and your improvement in symptoms you will be discharged home, you should call your doctor for an appointment this week. Return for any worsening pain or vomiting. Prescriptions: Hydrocodone/Acetaminophen [[place] 5-325 mg Tablet] 1 tab PO Q8H #8 tablet Referrals: URVASHI MELO MD [ACTIVE STAFF] - Follow up as needed
[2018-02-16] MEDS ORDERED: FENTANYL CITRATE INJ/PF 100 MCG/2 ML AMPUL IV ONE ×2 (13:30→16:46)
--- NOTE | 2018-02-16 15:07 | RADIOLOGY REPORT (SQ) ---
EXAM DESCRIPTION: U/S ABDOMEN LIMITED W/O DOP COMPLETED DATE/TIME: 02/16/2018 2:43 pm REASON FOR STUDY: concern for cholecystitis COMPARISON: MRI lumbar spine 01/23/2017 Abdominal ultrasound 01/29/2018 TECHNIQUE: Dynamic and static grayscale images acquired of the abdomen and recorded on PACS. Additio nal selected color Doppler and spectral images recorded. LIMITATIONS: Obese patient, bowel gas, limited scan FINDINGS: PANCREAS: Not well seen LIVER: No masses. Echotexture normal. LIVER VASCULATURE: Normal directional flow of the main portal vein and hepatic veins. GALLBLADDER: No stones. Normal wall thickness. No pericholecystic fluid. ULTRASOUND-DETECTED SMART'S SIGN: Positive. INTRAHEPATIC DUCTS AND COMMON DUCT: CBD and intrahepatic ducts normal caliber. No filling defects. INFERIOR VENA CAVA: Not well seen AORTA: No aneurysm. RIGHT KIDNEY: No hydronephrosis PERITONEAL AND RIGHT PLEURAL SPACE: No ascites or effusions. OTHER: No other significant findings. IMPRESSION: Patient was tender on exam over the gallbladder. However, no gross gallstones, gallblad jacquie wall thickening or pericholecystic fluid is seen. TECHNICAL DOCUMENTATION: JOB ID: [id number] [employer]- All Rights Reserved Reading location - IP/workstation name: [email or web address]
[2018-02-16] MEDS ORDERED: NORMAL SALINE 1000 ML 1,000 ML IV ONE (16:29)
--- NOTE | 2018-02-16 17:05 | RADIOLOGY REPORT (SQ) ---
EXAM DESCRIPTION: CT ABD/PELVIS WITH IV ONLY COMPLETED DATE/TIME: 02/16/2018 4:54 pm REASON FOR STUDY: concern for appendicitis COMPARISON: None. TECHNIQUE: CT scan of the abdomen and pelvis performed using helical scanning technique with dynamic intravenous contrast injection. No oral contrast. Images reviewed with lung, soft tissue, and bone w indows. Reconstructed coronal and sagittal MPR images reviewed. Delayed images for evaluation of the urinary system also acquired. All images stored on PACS. All CT scanners at this facility use dose modulation, iterative reconstruction, and/or weight based d osing when appropriate to reduce radiation dose to as low as reasonably achievable (ALARA). [facility]: Dose Right [facility]: CareDose [facility]: Dose Right [facility]: Teradose 4D [facility]: [facility] CONTRAST TYPE AND DOSE: 100 mL Isovue 370- low osmolar. RENAL FUNCTION: GFR > 60. RADIATION DOSE: . LIMITATIONS: None. FINDINGS: LOWER CHEST: No significant findings. LIVER: Normal size. No enhancing masses. No dilated ducts. SPLEEN: Normal size. No focal lesions. PANCREAS: No masses identified. No significant calcifications. No adjacent inflammation or peripancre atic fluid collections. Pancreatic duct not dilated. GALLBLADDER: No calcified stones. No inflammatory changes to suggest cholecystitis. ADRENAL GLANDS: No significant masses. RIGHT KIDNEY AND URETER: No cysts identified. No solid masses identified. No calcified stones. No hyd ronephrosis or hydroureter. LEFT KIDNEY AND URETER: No cysts identified. No solid masses identified. No calcified stones. No hydr onephrosis or hydroureter. AORTA AND VESSELS: No aneurysm. No dissection. Renal arteries, SMA, celiac without significant stenos is. RETROPERITONEUM: No bulky retroperitoneal adenopathy. BOWEL AND PERITONEAL CAVITY: No obstruction or inflammatory changes. No free fluid. APPENDIX: Normal. PELVIS: No mass. No free fluid. Unremarkable bladder. ABDOMINAL WALL: No masses. No hernias. BONES: No acute findings. OTHER: No other significant finding. IMPRESSION: NO ACUTE FINDINGS IN THE ABDOMEN OR PELVIS ON CT SCAN WITH IV CONTRAST. TECHNICAL DOCUMENTATION: JOB ID: [id number] Quality ID # [id number]: Final reports with documentation of one or more dose reduction techniques (e.g., Au tomated exposure control, adjustment of the mA and/or kV according to patient size, use of iterative reconstruction technique) 2010 [employer]- All Rights Reserved Reading location - IP/workstation name: [email or web address]
[2018-02-16 19:29] VITALS: BP 148/78
== END 2018-02-16 19:29 | disposition home or self-care (01) ==
LOC: ER 11:32
DX: R07.81 Pleurodynia (principal); R14.0 Abdominal distension (gaseous); R10.817 Generalized abdominal tenderness; R11.0 Nausea; I44.7 Left bundle-branch block, unspecified; I25.10 Atherosclerotic heart disease of native coronary artery without angina pectoris; I10 Essential (primary) hypertension; J44.9 Chronic obstructive pulmonary disease, unspecified; Z95.5 Presence of coronary angioplasty implant and graft; Z87.891 Personal history of nicotine dependence
CPT/HCPCS: 93005; 96376; 99285; 96361; 96374; 36415; 82553; 82550; 85025; 80053; 84484; 71045; 76705; 74177; 93010; A9270; J3010; J3490; J7030

== ENCOUNTER 2018-09-20 12:33 | Observation (INO) | payer MEDICARE, MEDICAID ==
[2018-09-20 14:09] LABS: HEMATOCRIT 40.5 % (36.0-47.0); HEMOGLOBIN 13.9 g/dL (12.0-15.5); MEAN CORPUSCULAR HEMOGLOBIN 32.1 pg (27.0-33.4); MEAN CORPUSCULAR HGB CONC 34.2 g/dL (32.0-36.0); MEAN CORPUSCULAR VOLUME 94 fl (80-97); PLATELET COUNT 245 10^3/uL (150-450); RED BLOOD COUNT 4.33 10^6/uL (3.72-5.28); RED CELL DISTRIBUTION WIDTH 12.8 % (11.5-14.0); WHITE BLOOD COUNT 6.5 10^3/uL (4.0-10.5)
[2018-09-20 14:30] LABS: ALANINE AMINOTRANSFERASE 31 U/L (9-52); ALBUMIN 4.8 g/dL (3.5-5.0); ALKALINE PHOSPHATASE 95 U/L (38-126); ANION GAP 15 (5-19); ASPARTATE AMINO TRANSFERASE 31 U/L (14-36); BILIRUBIN,DIRECT 0.4 mg/dL (0.0-0.4); BILIRUBIN,TOTAL 0.8 mg/dL (0.2-1.3); BLOOD UREA NITROGEN 14 mg/dL (7-20); CALCIUM 9.9 mg/dL (8.4-10.2); CARBON DIOXIDE 25 mmol/L (22-30); CHLORIDE 102 mmol/L (98-107); CREATINE KINASE 263 U/L (30-135); GLUCOSE 93 mg/dL (75-110); POTASSIUM 3.9 mmol/L (3.6-5.0); SODIUM 142.1 mmol/L (137-145); TOTAL PROTEIN 8.5 g/dL (6.3-8.2)
[2018-09-20 14:46] LABS: CREATINE KINASE MB 2.31 ng/mL (<4.55)
[2018-09-20 14:50] LABS: TROPONIN I < 0.012 ng/mL
--- NOTE | 2018-09-20 16:03 | RADIOLOGY REPORT (SQ) ---
EXAM DESCRIPTION: CHEST 2 VIEWS COMPLETED DATE/TIME: 09/20/2018 3:57 pm REASON FOR STUDY: CHEST PAIN COMPARISON: Chest films 01/23/2017, 02/16/2018 CT chest 07/04/2016 EXAM PARAMETERS: NUMBER OF VIEWS: two views TECHNIQUE: Digital Frontal and Lateral radiographic views of the chest acquired. RADIATION DOSE: NA LIMITATIONS: none FINDINGS: LUNGS AND PLEURA: Lungs are hyperinflated and hyperlucent. No opacities, masses or pneumo thorax. No pleural effusion. MEDIASTINUM AND HILAR STRUCTURES: No masses or contour abnormalities. HEART AND VASCULAR STRUCTURES: Stable borderline cardiomegaly BONES: Osteoporotic with chronic T12 50% compression deformity HARDWARE: None in the chest. OTHER: No other significant finding. IMPRESSION: Obstructive lung disease. No acute infiltrates TECHNICAL DOCUMENTATION: JOB ID: [id number] [employer]- All Rights Reserved Reading location - IP/workstation name: [email or web address]
[2018-09-20] MEDS ORDERED: NITROGLYCERIN 0.4 MG/TAB 25 TAB/BOTTLE SL PRN (17:54)
[2018-09-20] MEDS ORDERED: ALBUTEROL SULFATE HFA (90 MCG/PUFF) 200 PUFF/8.5 GM MDI IH PRN (18:40)
--- NOTE | 2018-09-20 18:41 | PDOC H&P ---
History of Present Illness Admission Date/PCP: 09/20/18 12:33 RICHARD LOPEZ MD History of Present Illness: SUE ROBLEDO is a 77 year old female, She has a history of coronary artery disease, she came to the office today for follow-up evaluation, she complained of chest pain, the chest pain is not typical chest pain for ischemia, it is not provoked by exertion or emotional outburst and relieved by rest but because she has underlying ischemic heart disease with a stent of the coronary vessels a twelve-lead EKG was done in the office it was sinus rhythm with left bundle branch block no change from 2017 Past Medical History Cardiac Medical History: Reports: Coronary Artery Disease, Hyperlipidema, Hypertension Pulmonary Medical History: Reports: Chronic Obstructive Pulmonary Disease (COPD) Musculoskeltal Medical History: Reports: Arthritis Past Surgical History Past Surgical History: Reports: Cardiac Catheterization, Coronary Stent, Tubal Ligation Social History Smoking Status: Former Smoker Frequency of Alcohol Use: None Hx Recreational Drug Use: No Drugs: None Hx Prescription Drug Abuse: No Family History Family History: None Parental Family History Reviewed: Yes Children Family History Reviewed: Yes Sibling(s) Family History Reviewed.: Yes Medication/Allergy Home Medications: Albuterol Sulfate [Proair HFA Inhalation Aerosol 8.5 gm MDI] 2 puff IH Q4HP PRN 09/20/18 Alendronate Sodium [Fosamax 70 mg Tablet] 70 mg PO FR@1000 09/20/18 Aspirin [Ecotrin 81 mg EC Tablet] 81 mg PO DAILY 09/20/18 Atorvastatin Calcium [Lipitor 40 mg Tablet] 40 mg PO QHS 09/20/18 Ergocalciferol (Vitamin D2) [Vitamin D2] 50 mcg PO DAILY 09/20/18 Metoprolol Succinate [Toprol Xl 50 mg Tab.sr] 50 mg PO DAILY 09/20/18 Nitroglycerin [Nitrostat 0.4 mg (1/150 Gr) Tabs 25/Bottle] 0.4 mg SL Q5MP PRN 09/20/18 Omeprazole 40 mg PO QHS 09/20/18 Umeclidinium Brm/Vilanterol Tr [Anoro Ellipta 62.5-25 Mcg INH] 1 puff IH DAILY 09/20/18 Allergies/Adverse Reactions: No Known Allergies Allergy (Verified 07/04/16 04:12) Review of Systems Constitutional: ABSENT: as per HPI, anorexia, chills, fatigue, fever(s), headache(s), night sweats, weakness, weight gain, weight loss, other Eyes: ABSENT: visual disturbances Ears: ABSENT: hearing changes Cardiovascular: PRESENT: chest pain Respiratory: ABSENT: cough, hemoptysis Gastrointestinal: ABSENT: abdominal pain, constipation, diarrhea, hematemesis, hematochezia, nausea, vomiting Genitourinary: ABSENT: dysuria, hematuria Musculoskeletal: ABSENT: joint swelling Integumentary: ABSENT: rash, wounds Neurological: ABSENT: abnormal gait, abnormal speech, confusion, dizziness, focal weakness, syncope Psychiatric: ABSENT: anxiety, depression, homidical ideation, suicidal ideation Endocrine: ABSENT: cold intolerance, heat intolerance, menstrual abnormalities, polydipsia, polyuria Hematologic/Lymphatic: ABSENT: easy bleeding, easy bruising, lymphadenopathy Physical Exam Vital Signs: Temp Pulse Resp BP Pulse Ox 97.4 F 74 20 145/77 H 99 09/20/18 13:47 09/20/18 14:10 09/20/18 13:47 09/20/18 13:47 09/20/18 13:47 Intake & Output 09/19/18 09/20/18 09/21/18 06:59 06:59 06:59 Intake Total 466 Balance 466 Weight 71.7 kg General appearance: PRESENT: no acute distress, well-developed, well-nourished Head exam: PRESENT: atraumatic, normocephalic Eye exam: PRESENT: conjunctiva pink, EOMI, PERRLA Ear exam: PRESENT: normal external ear exam Mouth exam: PRESENT: moist, tongue midline Neck exam: PRESENT: full ROM Respiratory exam: PRESENT: clear to auscultation dianna Cardiovascular exam: PRESENT: RRR, +S1, +S2 Pulses: PRESENT: normal dorsalis pedis pul, +2 pedal pulses bilateral Vascular exam: PRESENT: normal capillary refill GI/Abdominal exam: PRESENT: normal bowel sounds, soft Rectal exam: PRESENT: deferred Neurological exam: PRESENT: alert, awake, oriented to person, oriented to place, oriented to time, oriented to situation, CN II-XII grossly intact Psychiatric exam: PRESENT: appropriate affect, normal mood Skin exam: PRESENT: dry, intact, warm Results Laboratory Results: 09/20/18 13:49 09/20/18 13:49 09/20/18 09/20/18 13:49 13:49 WBC 6.5 RBC 4.33 Hgb 13.9 Hct 40.5 MCV 94 MCH 32.1 MCHC 34.2 RDW 12.8 Plt Count 245 Sodium 142.1 Potassium 3.9 Chloride 102 Carbon Dioxide 25 Anion Gap 15 BUN 14 Creatinine 0.83 Est GFR ( Amer) > 60 Est GFR (Non-Af Amer) > 60 Glucose 93 Calcium 9.9 Total Bilirubin 0.8 AST 31 ALT 31 Alkaline Phosphatase 95 Total Protein 8.5 H Albumin 4.8 09/20/18 09/20/18 13:49 13:49 Creatine Kinase 263 H CK-MB (CK-2) 2.31 Troponin I < 0.012 Impressions: Chest X-Ray 09/20/18 00:00 IMPRESSION: Obstructive lung disease. No acute infiltrates Assessment & Plan - Diagnosis (1) Chest pain Qualifiers: Chest pain type: unspecified Qualified Code(s): R07.9 - Chest pain, unspeci fied Is this a current diagnosis for this admission?: Yes Plan: Patient is admitted for evaluation of chest pain, she has a history of coronary artery disease. (2) CAD (coronary artery disease) Qualifiers: Coronary Disease-Associated Artery/Lesion type: [place] artery [place] vs. transplanted heart: [place] heart Associated angina: without angina Qualified Code(s): I25.10 - Atherosclerotic heart disease of [place] coronary artery without angina pectoris Is this a current diagnosis for this admission?: Yes
[2018-09-20] MEDS: ASPIRIN 325 MG TABLET PO SCH (18:59)
[2018-09-20] MEDS: ACETAMINOPHEN 325 MG TABLET PO PRN (20:36)
[2018-09-20] MEDS ORDERED: ATORVASTATIN CALCIUM 40 MG TABLET PO SCH (22:00)
[2018-09-20] MEDS ORDERED: PANTOPRAZOLE SODIUM 40 MG TABLET.DR PO SCH (22:00)
[2018-09-20 22:25] LABS: CREATINE KINASE MB 1.68 ng/mL (<4.55)
[2018-09-20 22:33] LABS: TROPONIN I < 0.012 ng/mL
--- NOTE | 2018-09-20 22:49 | EKG REPORT ---
SEVERITY:- ABNORMAL ECG - SINUS RHYTHM LEFT BUNDLE BRANCH BLOCK : Confirmed by: Rod Orta 20-Sep-2018 22:48:36
[2018-09-21 07:17] LABS: CREATINE KINASE MB 1.61 ng/mL (<4.55)
[2018-09-21 07:19] LABS: TROPONIN I < 0.012 ng/mL
[2018-09-21] MEDS ORDERED: ASPIRIN 81 MG TABLET, CHEWABLE PO SCH (08:00)
[2018-09-21] MEDS ORDERED: METOPROLOL TARTRATE 50 MG TABLET PO SCH (08:00)
[2018-09-21] MEDS ORDERED: CHOLECALCIFEROL (D3) 1,000 UNIT TABLET PO SCH (08:00)
[2018-09-21] MEDS ORDERED: REGADENOSON INJ 0.4 MG/5 ML DISP.SYRIN IV ONE (09:52)
[2018-09-21] MEDS ORDERED: METOPROLOL SUCCINATE 50 MG TAB.SR.24H PO SCH (10:00)
[2018-09-21] MEDS: ASPIRIN 325 MG TABLET PO SCH (10:52)
[2018-09-21] MEDS: ACETAMINOPHEN 325 MG TABLET PO PRN (14:40)
[2018-09-21 18:15] VITALS: BP 112/53
--- NOTE | 2018-09-21 20:21 | PDOC DISCHARGE SUMMARY ---
General - Admit/Disc Date/PCP Admission Date/Primary Care Provider: 09/20/18 12:33 RICHARD LOPEZ MD Discharge Date: 09/21/18 - Discharge Diagnosis (1) Chest pain Is this a current diagnosis for this admission?: Yes (2) CAD (coronary artery disease) Is this a current diagnosis for this admission?: Yes - Additional Information Discharge Diet: Cardiac Discharge Activity: Activity As Tolerated Home Medications: Albuterol Sulfate [Proair HFA Inhalation Aerosol 8.5 gm MDI] 2 puff IH Q4HP PRN 09/20/18 Alendronate Sodium [Fosamax 70 mg Tablet] 70 mg PO FR@1000 09/20/18 Aspirin [Ecotrin 81 mg EC Tablet] 81 mg PO DAILY 09/20/18 Atorvastatin Calcium [Lipitor 40 mg Tablet] 40 mg PO QHS 09/20/18 Ergocalciferol (Vitamin D2) [Vitamin D2] 50 mcg PO DAILY 09/20/18 Metoprolol Succinate [Toprol Xl 50 mg Tab.sr] 50 mg PO DAILY 09/20/18 Nitroglycerin [Nitrostat 0.4 mg (1/150 Gr) Tabs 25/Bottle] 0.4 mg SL Q5MP PRN 09/20/18 Omeprazole 40 mg PO QHS 09/20/18 Umeclidinium Brm/Vilanterol Tr [Anoro Ellipta 62.5-25 Mcg INH] 1 puff IH DAILY 09/20/18 History of Present Illness History of Present Illness: SUE ROBLEDO is a 77 year old female, She has a history of coronary artery disease, she came to the office today for follow-up evaluation, she complained of chest pain, the chest pain is not typical chest pain for ischemia, it is not provoked by exertion or emotional outburst and relieved by rest but because she has underlying ischemic heart disease with a stent of the coronary vessels a twelve-lead EKG was done in the office it was sinus rhythm with left bundle branch block no change from 2017 Hospital Course Hospital Course: Patient was admitted for the management of chest pain, 3 sets of cardiac enzymes was negative for acute DC, she underwent Cardiolite Lexiscan stress test there was no reversibility that suggest ischemia. The chest pain is atypical, she will be discharged home today she be evaluated for non-cardiac chest pain Physical Exam Vital Signs: Temp Pulse Resp BP Pulse Ox 97.7 F 55 L 18 112/53 L 96 09/21/18 18:14 09/21/18 18:14 09/21/18 18:14 09/21/18 18:14 09/21/18 18:14 Intake & Output 09/20/18 09/21/18 09/22/18 06:59 06:59 06:59 Intake Total 1026 Balance 1026 Weight 71.7 kg General appearance: PRESENT: no acute distress Eye exam: PRESENT: PERRLA Respiratory exam: PRESENT: clear to auscultation dianna Cardiovascular exam: PRESENT: +S1, +S2 GI/Abdominal exam: PRESENT: soft Neurological exam: PRESENT: alert Results Laboratory Results: 09/20/18 13:49 09/20/18 13:49 09/20/18 09/20/18 09/20/18 13:49 13:49 21:55 Creatine Kinase 263 H 178 H CK-MB (CK-2) 2.31 Troponin I < 0.012 09/20/18 09/21/18 09/21/18 21:55 05:53 05:53 Creatine Kinase 167 H CK-MB (CK-2) 1.68 1.61 Troponin I < 0.012 < 0.012 Impressions: Chest X-Ray 09/20/18 00:00 IMPRESSION: Obstructive lung disease. No acute infiltrates Qualifiers - * PATIENT BEING DISCHARGED WITH ANY OF THE FOLLOWING DIAGNOSIS: No
--- NOTE | 2018-09-23 00:01 | DRAGON STRESS TEST REPORT ---
Intravenous Lexiscan Cardiolite stress test using single photon emmision computerized tomography. Date of procedure: 09/21/2018. Ordering Provider: Dr. Gardner. Patient's status: In Patient. Indication: Chest pain, and abnormal EKG.. Coronary risk factors: Age, and abnormal EKG Resting EKG: Sinus Rhythm. Left bundle branch block pattern. Stress EKG:[Nondiagnostic of ischemia, in view of the patient's left bundle branch block pattern.. The patient has no chest pain or discomfort, and there was no arrhythmias seen. Reason for termination: Protocol. Conclusions: Normal EKG and hemodynamic response to IV Lexiscan. Nuclear data: At rest the patient was given 10.14 millicuries of technetium 99m sestamibi injected intravenously. As per protocol rest non gated SPECT images were obtained. Subsequently the patient was given intravenous Lexiscan at a dose of 0.4 mg in 5 mL intravenously, followed by flush with normal saline. Subsequently the stress dose of 34.5 millicuries of technetium 99m sestamibi was injected intravenously. As per protocol stress gated images were obtained. Nuclear interpretation: Review of images showed that all segments of the myocardium had normal perfusion at rest, and normal perfusion post stress with IV Lexiscan. All segments of the myocardium had normal motion, contraction, and thickening by gated study. T. I D. ratio was normal at 1.11. There is no transient ischemic dilatation of the left ventricle. Computer read rest, and stress left ventricular ejection fraction were 61 %, and 57 %, respectively. Conclusion: 1. There is no scintigraphic evidence of Lexiscan induced myocardial ischemia. 2. There is no scintigraphic evidence of myocardial infarction/scar. [facility]
== END 2018-09-21 18:38 | disposition home or self-care (01) ==
LOC: INTOOBSV 12:33 → 4N 12:33
PROVIDERS: ADMIT Internal Medicine; ATTEND Internal Medicine
DX: R07.89 Other chest pain (principal); I25.10 Atherosclerotic heart disease of native coronary artery without angina pectoris; R94.31 Abnormal electrocardiogram [ECG] [EKG]; I44.7 Left bundle-branch block, unspecified; E78.5 Hyperlipidemia, unspecified; I10 Essential (primary) hypertension; Z79.899 Other long term (current) drug therapy; Z79.82 Long term (current) use of aspirin; Z95.5 Presence of coronary angioplasty implant and graft; Z87.891 Personal history of nicotine dependence
CPT/HCPCS: 36415 ×2; 82553 ×2; 82550 ×2; 85027; 80076; 80048; 84484 ×2; 85379; 93017; 71046; 78452; 93005; 93010; A9500; J2785; A9270 ×5; Q9969; J3490

== ENCOUNTER 2019-06-17 12:12 | Observation (INO) | payer MEDICARE, MEDICAID ==
[2019-06-17 13:04] LABS: ABSOLUTE BASOPHILS # (AUTO) 0.1 10^3/uL (0.0-0.2); ABSOLUTE EOSINOPHILS # (AUTO) 0.1 10^3/uL (0.0-0.6); ABSOLUTE LYMPHOCYTES (AUTO) 2.4 10^3/uL (0.5-4.7); ABSOLUTE MONOCYTES (AUTO) 1.8 10^3/uL (0.1-1.4); ABSOLUTE NEUT (AUTO) 7.2 10^3/uL (1.7-8.2); BASOPHILS % (AUTO) 0.6 % (0-2); EOSINOPHILS % (AUTO) 0.5 % (0-6); HEMATOCRIT 41.5 % (36.0-47.0); HEMOGLOBIN 13.9 g/dL (12.0-15.5); LYMPHOCYTES % (AUTO) 20.7 % (13-45); MEAN CORPUSCULAR HEMOGLOBIN 31.3 pg (27.0-33.4); MEAN CORPUSCULAR HGB CONC 33.5 g/dL (32.0-36.0); MEAN CORPUSCULAR VOLUME 94 fl (80-97); MONOCYTES % (AUTO) 15.7 % (3-13); PLATELET COUNT 221 10^3/uL (150-450); RED BLOOD COUNT 4.43 10^6/uL (3.72-5.28); RED CELL DISTRIBUTION WIDTH 13.2 % (11.5-14.0); SEGMENTED NEUTROPHILS % (AUTO) 62.5 % (42-78); TOTAL CELLS COUNTED % (AUTO) 100 %; WHITE BLOOD COUNT 11.5 10^3/uL (4.0-10.5)
[2019-06-17 13:10] LABS: INTERNATIONAL RATION (INR) 1.01; PROTHROMBIN TIME 13.3 SEC (11.4-15.4)
[2019-06-17 13:20] LABS: ALBUMIN 4.7 g/dL (3.5-5.0); ALKALINE PHOSPHATASE 118 U/L (38-126); ANION GAP 12 (5-19); ASPARTATE AMINO TRANSFERASE 32 U/L (14-36); BILIRUBIN,DIRECT 0.3 mg/dL (0.0-0.4); BLOOD UREA NITROGEN 13 mg/dL (7-20); CALCIUM 9.2 mg/dL (8.4-10.2); CARBON DIOXIDE 24 mmol/L (22-30); CHLORIDE 102 mmol/L (98-107); CREATINE KINASE 252 U/L (30-135); GLUCOSE 109 mg/dL (75-110); POTASSIUM 3.9 mmol/L (3.6-5.0); TOTAL PROTEIN 8.2 g/dL (6.3-8.2)
[2019-06-17 13:32] LABS: CREATINE KINASE MB 2.96 ng/mL (<4.55)
[2019-06-17 13:35] LABS: TROPONIN I < 0.012 ng/mL
[2019-06-17] MEDS ORDERED: PANTOPRAZOLE SODIUM 40 MG VIAL IV ONE (13:39)
--- NOTE | 2019-06-17 14:38 | ER Document Report ---
Entered by BARON SCHULTZ SCRIBE 06/17/19 2417 Acting as scribe for:SHAYLA SCHNEIDER DO ED Cardiac - General Chief Complaint: Chest Pain Stated Complaint: CHEST PAIN Time Seen by Provider: 06/17/19 12:51 Mode of Arrival: Ambulatory Information source: Patient Notes: This 78-year-old female patient presents to the emergency department today with complaints of chest pain that began x1.5 hours prior to arrival today. Patient describes the pain as if "someone were taking a knife and twisting it in my chest". Patient has a history of coronary artery disease with one coronary stent placed approximately x5 years ago in [place], [place]. Patient states about x1 year ago she developed chest pain again and was sent to [facility] where she underwent a cardiac catheterization. It was found that her previous stent had become blocked again so this was repaired and she has not had any issues with her heart since. Patient states that when her symptoms began today she was with a friend who gave her some of her NTG. Patient states she had no change in her pain with the NTG. Patient's pain is reproducible with movements, chest wall palpation, or coughing. TRAVEL OUTSIDE OF THE [place] IN LAST 30 DAYS: No - Related Data Allergies/Adverse Reactions: No Known Allergies Allergy (Verified 07/04/16 04:12) Past Medical History - General Information source: Patient, Relative - son - Social History Smoking Status: Former Smoker Cigarette use (# per day): No Frequency of alcohol use: None Drug Abuse: None Lives with: Family Family History: Reviewed & Not Pertinent Patient has suicidal ideation: No Patient has homicidal ideation: No - Past Medical History Cardiac Medical History: Reports: Hx Coronary Artery Disease, Hx Hypercholesterolemia, Hx Hypertension Pulmonary Medical History: Reports: Hx COPD Musculoskeletal Medical History: Reports Hx Arthritis Past Surgical History: Reports: Hx Cardiac Catheterization, Hx Cardiac Surgery - LAD Stent, Hx Coronary Stent, Hx Tubal Ligation - Immunizations Hx Pneumococcal Vaccination: 07/03/18 Review of Systems - Review of Systems Constitutional: denies: Chills, Fever EENT: No symptoms reported Cardiovascular: See HPI, Chest pain Respiratory: denies: Short of breath Gastrointestinal: No symptoms reported Genitourinary: No symptoms reported Female Genitourinary: No symptoms reported Musculoskeletal: No symptoms reported Skin: No symptoms reported Hematologic/Lymphatic: No symptoms reported Neurological/Psychological: No symptoms reported -: Yes All other systems reviewed and negative Physical Exam - Vital signs Vitals: Temp Pulse Resp BP Pulse Ox 98.4 F 75 24 H 148/81 H 97 06/17/19 12:16 06/17/19 12:16 06/17/19 12:16 06/17/19 12:16 06/17/19 12:16 Interpretation: Normal - General General appearance: Appears well, Alert - HEENT Head: Normocephalic, Atraumatic Eyes: Normal Pupils: PERRL - Respiratory Respiratory status: No respiratory distress Chest status: Nontender Breath sounds: Normal Chest palpation: Normal - Cardiovascular Rhythm: Regular Heart sounds: Normal auscultation Murmur: No - Abdominal Inspection: Normal Distension: No distension Bowel sounds: Normal Tenderness: Nontender Organomegaly: No organomegaly - Back Back: Normal, Nontender - Extremities General upper extremity: Normal inspection, Nontender, Normal color, Normal ROM, Normal temperature General lower extremity: Normal inspection, Nontender, Normal color, Normal ROM, Normal temperature, Normal weight bearing. No: Pillo's sign - Neurological Neuro grossly intact: Yes Cognition: Normal Orientation: AAOx4 Jennifer Coma Scale Eye Opening: Spontaneous [place] Coma Scale Verbal: Oriented Jennifer Coma Scale Motor: Obeys Commands Jennifer Coma Scale Total: 15 Speech: Normal Motor strength normal: LUE, RUE, LLE, RLE Sensory: Normal - Psychological Associated symptoms: Normal affect, Normal mood - Skin Skin Temperature: Warm Skin Moisture: Dry Skin Color: Normal Course - Re-evaluation Re-evalutation: 06/17/19 15:53 Patient discussed with her primary care doctor, Dr. Gardner. Will be admitted for evaluation of chest pain is the patient has coronary artery disease with cath last year. She is agreeable to this plan. Initial troponin is negative. History of left bundle branch block per records. Patient is agreeable to this plan. Also has history of hiatal hernia and Protonix ordered. - Vital Signs Vital signs: Temp Pulse Resp BP Pulse Ox 98.4 F 75 20 150/78 H 95 06/17/19 12:16 06/17/19 12:16 06/17/19 13:01 06/17/19 13:01 06/17/19 13:01 - Laboratory Result Diagrams: 06/17/19 11:39 06/17/19 11:39 Laboratory results interpreted by me: 06/17/19 06/17/19 11:39 11:39 WBC 11.5 H [place] % (Auto) 15.7 H Absolute Monos (auto) 1.8 H Creatine Kinase 252 H Discharge - Discharge Clinical Impression: Chest pain Qualifiers: Chest pain type: unspecified Qualified Code(s): R07.9 - Chest pain, unspecified Condition: Stable Disposition: ADMITTED OBSERVATION Admitting Provider: [facility] Unit Admitted: Telemetry I personally performed the services described in the documentation, reviewed and edited the documentation which was dictated to the scribe in my presence, and it accurately records my words and actions.
[2019-06-17] MEDS ORDERED: NITROGLYCERIN 0.4 MG/TAB 25 TAB/BOTTLE SL PRN (17:42)
[2019-06-17] MEDS ORDERED: ALBUTEROL SULFATE HFA (90 MCG/PUFF) 200 PUFF/8.5 GM MDI IH PRN (17:42)
[2019-06-17] MEDS ORDERED: (PENDING PHARMACY ID) (Ergocalciferol (Vitamin D2) [Vitamin D2] 50 MCG) PO SCH (17:45)
[2019-06-17] MEDS ORDERED: (PENDING PHARMACY ID) (Umeclidinium Brm/Vilanterol Tr [Anoro Ellipta 62.5-25 Mcg Inh] 1 PU IH SCH (17:45)
[2019-06-17] MEDS ORDERED: INFLUENZA QUAD (6MOS+) 2019-20 VAC 0.5 ML SYR IM ONE (18:03)
[2019-06-17 20:01] LABS: CREATINE KINASE MB 2.97 ng/mL (<4.55)
[2019-06-17 20:03] LABS: TROPONIN I < 0.012 ng/mL
--- NOTE | 2019-06-17 21:48 | PDOC H&P ---
History of Present Illness Admission Date/PCP: 06/17/19 14:54 RICHARD LOPEZ MD History of Present Illness: SUE ROBLEDO is a 78 year old female, She has a history of coronary artery disease, she came to the emergency room for evaluation of chest pain, the chest pain is atypical in character, in the emergency room the 12-lead EKG was sinus rhythm with left bundle branch block, this is chronic, She has a history of coronary artery disease status post stenting Past Medical History Cardiac Medical History: Reports: Coronary Artery Disease, Hyperlipidema, Hypertension Pulmonary Medical History: Reports: Chronic Obstructive Pulmonary Disease (COPD) Endocrine Medical History: Reports: Diabetes Mellitus Type 2 Musculoskeltal Medical History: Reports: Arthritis Past Surgical History Past Surgical History: Reports: Cardiac Catheterization, Coronary Stent, Tubal Ligation Social History Lives with: Family Smoking Status: Former Smoker Frequency of Alcohol Use: None Hx Recreational Drug Use: No Drugs: None Hx Prescription Drug Abuse: No Family History Family History: Reviewed & Not Pertinent Parental Family History Reviewed: Yes Children Family History Reviewed: Yes Sibling(s) Family History Reviewed.: Yes Medication/Allergy Home Medications: Albuterol Sulfate [Albuterol Sulfate Hfa] 2 puff IH Q4HP PRN 06/17/19 Alendronate Sodium [Fosamax 70 mg Tablet] 70 mg PO FR@1000 06/17/19 Aspirin [Adult Low Dose Aspirin EC] 81 mg PO DAILY 06/17/19 Atorvastatin Calcium [Lipitor 40 mg Tablet] 40 mg PO QHS 06/17/19 Ergocalciferol (Vitamin D2) [Vitamin D2] 50 mcg PO DAILY 06/17/19 Metoprolol Succinate [Toprol Xl 50 mg Tab.sr] 50 mg PO DAILY 06/17/19 Nitroglycerin [Nitrostat 0.4 mg (1/150 Gr) Tabs 25/Bottle] 1 tab SL Q5MP PRN 06/17/19 Omeprazole 40 mg PO QHS 06/17/19 Umeclidinium Brm/Vilanterol Tr [Anoro Ellipta 62.5-25 Mcg INH] 1 puff IH DAILY 06/17/19 Allergies/Adverse Reactions: No Known Allergies Allergy (Verified 07/04/16 04:12) Review of Systems Constitutional: ABSENT: chills, fever(s), headache(s), weight gain, weight loss Eyes: ABSENT: visual disturbances Ears: ABSENT: hearing changes Cardiovascular: PRESENT: chest pain. ABSENT: dyspnea on exertion, edema, orthropnea, palpitations Respiratory: ABSENT: cough, hemoptysis Gastrointestinal: ABSENT: abdominal pain, constipation, diarrhea, hematemesis, hematochezia, nausea, vomiting Genitourinary: ABSENT: dysuria, hematuria Musculoskeletal: ABSENT: joint swelling Integumentary: ABSENT: rash, wounds Neurological: ABSENT: abnormal gait, abnormal speech, confusion, dizziness, focal weakness, syncope Psychiatric: ABSENT: anxiety, depression, homidical ideation, suicidal ideation Endocrine: ABSENT: cold intolerance, heat intolerance, menstrual abnormalities, polydipsia, polyuria Hematologic/Lymphatic: ABSENT: easy bleeding, easy bruising, lymphadenopathy Physical Exam Vital Signs: Temp Pulse Resp BP Pulse Ox 97.8 F 70 18 136/67 H 93 06/17/19 19:34 06/17/19 19:34 06/17/19 19:34 06/17/19 19:34 06/17/19 19:34 Intake & Output 06/16/19 06/17/19 06/18/19 06:59 06:59 06:59 Weight 59.7 kg General appearance: PRESENT: no acute distress Head exam: PRESENT: atraumatic, normocephalic Eye exam: PRESENT: conjunctiva pink, EOMI, PERRLA Ear exam: PRESENT: normal external ear exam Mouth exam: PRESENT: moist, tongue midline Neck exam: PRESENT: full ROM Respiratory exam: PRESENT: clear to auscultation dianna Cardiovascular exam: PRESENT: RRR, +S1, +S2 Pulses: PRESENT: normal dorsalis pedis pul, +2 pedal pulses bilateral Vascular exam: PRESENT: normal capillary refill GI/Abdominal exam: PRESENT: normal bowel sounds, soft Rectal exam: PRESENT: deferred Neurological exam: PRESENT: alert, CN II-XII grossly intact Psychiatric exam: PRESENT: appropriate affect, normal mood Skin exam: PRESENT: dry, intact, warm Results Laboratory Results: 06/17/19 11:39 06/17/19 11:39 06/17/19 06/17/19 11:39 11:39 WBC 11.5 H RBC 4.43 Hgb 13.9 Hct 41.5 MCV 94 MCH 31.3 MCHC 33.5 RDW 13.2 Plt Count 221 Seg Neutrophils % 62.5 Sodium 138.3 Potassium 3.9 Chloride 102 Carbon Dioxide 24 Anion Gap 12 BUN 13 Creatinine 0.81 Est GFR ( Amer) > 60 Glucose 109 Calcium 9.2 Total Bilirubin 1.0 AST 32 Alkaline Phosphatase 118 Total Protein 8.2 Albumin 4.7 06/17/19 06/17/19 06/17/19 11:39 11:39 19:07 Creatine Kinase 252 H 237 H CK-MB (CK-2) 2.96 Troponin I < 0.012 06/17/19 19:07 Creatine Kinase CK-MB (CK-2) 2.97 Troponin I < 0.012 Assessment & Plan - Diagnosis (1) Chest pain Qualifiers: Chest pain type: unspecified Qualified Code(s): R07.9 - Chest pain, unspecified Is this a current diagnosis for this admission?: Yes Plan: She has underlining coronary artery disease, she is admitted for observation, 3 sets of cardiac enzymes will be drawn, if negative a Cardiolite Lexiscan stress test will be ordered (2) CAD (coronary artery disease) Qualifiers: Coronary Disease-Associated Artery/Lesion type: [place] artery [place] vs. transplanted heart: [place] heart Associated angina: without angina Qualified Code(s): I25.10 - Atherosclerotic heart disease of [place] coronary artery without angina pectoris Is this a current diagnosis for this admission?: Yes (3) Left bundle branch block (LBBB) Is this a current diagnosis for this admission?: Yes
[2019-06-17] MEDS ORDERED: ATORVASTATIN CALCIUM 40 MG TABLET PO SCH (22:00)
[2019-06-17] MEDS: CHOLECALCIFEROL (D3) 1,000 UNIT (25 MCG) TABLET PO SCH (22:48)
--- NOTE | 2019-06-18 00:18 | EKG REPORT ---
SEVERITY:- ABNORMAL ECG - SINUS RHYTHM LEFT BUNDLE BRANCH BLOCK : Confirmed by: Rod Orta 18-Jun-2019 00:17:52
[2019-06-18 02:44] LABS: TROPONIN I < 0.012 ng/mL
[2019-06-18] MEDS: PANTOPRAZOLE SODIUM 40 MG TABLET.DR PO SCH (05:20)
[2019-06-18] MEDS: ENOXAPARIN SODIUM INJ 40 MG/0.4 ML DISP.SYRIN SUBCUT SCH ×2 (07:44→10:55)
[2019-06-18] MEDS: METOPROLOL SUCCINATE 50 MG TAB.SR.24H PO SCH ×2 (07:44→10:55)
[2019-06-18] MEDS: ASPIRIN 81 MG TABLET, ENT COATED PO SCH ×2 (07:45→10:55)
[2019-06-18 08:08] LABS: CREATINE KINASE MB 2.28 ng/mL (<4.55)
[2019-06-18 08:15] LABS: TROPONIN I < 0.012 ng/mL
[2019-06-18] MEDS ORDERED: CHOLECALCIFEROL (D3) 1,000 UNIT (25 MCG) TABLET PO SCH ×2 (10:00)
[2019-06-18] MEDS: CHOLECALCIFEROL (D3) 1,000 UNIT (25 MCG) TABLET PO SCH (10:55)
[2019-06-18] MEDS ORDERED: NITROGLYCERIN 0.4 MG/TAB 25 TAB/BOTTLE ONE (12:18)
[2019-06-18] MEDS: OXYCODONE-ACETAMINOPHEN 5-325 MG TABLET PO PRN ×2 (13:16→23:43)
[2019-06-18] MEDS ORDERED: REGADENOSON INJ 0.4 MG/5 ML DISP.SYRIN IV ONE (17:00)
--- NOTE | 2019-06-18 19:38 | DRAGON STRESS TEST REPORT ---
Procedure performed: Rest/stress single isotope cardiac SPECT imaging with IV Lexiscan stress and gated SPECT imaging. Indication: Assess chest pains. Clinical history this 78 years old female with history of hypertension, admitted for chest pains for investigation, 3 sets of troponin I were negative. Report: Patient received IV Lexiscan 0.4 mg infused over 10 seconds and flushed. The resting heart rate was 79 bpm and increased to 100 bpm at end infusion. The resting blood pressure was 150/78 and Increased to 162/83 at an infusion. Patient has symptoms of shortness of breath no chest pains. The resting twelve-lead EKG showed NSR 77 bpm, complete left bundle branch block. At end infusion, the complete left bundle branch block was unchanged. Myocardial perfusion imaging was performed at rest 60 minutes after the injection of 10.83 mCi of Cardiolite. 10 seconds after the injection of IV Lexiscan patient was injected with 32.8 mCi of Cardiolite and flushed. Gated poststress tomographic imaging was performed 60 minutes after stress. Findings: The overall quality of the study is poor, this is due to extra cardiac uptake of tracer activity imposed on the inferior wall of the stress images. The left ventricular cavity is noted to be enlarged on the stress images compared to the rest images. The transient ischemic dilatation ratio was visually abnormal despite computer calculation of only 1.06. SPECT images showed a moderate size area of severe reversible ischemia in the apex, apical anterior wall, apical anteroseptal wall, and a severe fixed perfusion defect in the basal IVS. Gated SPECT imaging showed reduced motion contraction in the apex, apical anterior wall, apical anteroseptal wall, and IVS. The left ventricular ejection fraction was calculated at 53%, low normal. Impression: Myocardial perfusion imaging is abnormal due to transient ischemic dilatation of the left ventricle suggesting critical stenosis to the mid LAD. There is a moderate size severe reversible ischemia in the apex, apical anterior and apical anteroseptal wall, with a severe fixed perfusion defect in the basal IVS. Overall left ventricular ejection fraction was low normal at 53% and reduced motion contraction was seen in the apex, apical anterior wall apical anteroseptal wall and the IVS. [facility]
--- NOTE | 2019-06-18 20:56 | PDOC PROGRESS REPORT ---
Subjective Progress Note for:: 06/18/19 Subjective:: Patient was seen by the bedside the Cardiolite stress test was grossly abnormal with reversible ischemia Reason For Visit: CHEST PAIN Physical Exam Vital Signs: Temp Pulse Resp BP Pulse Ox 97.2 F 64 18 149/73 H 95 06/18/19 15:05 06/18/19 15:05 06/18/19 15:05 06/18/19 15:05 06/18/19 15:05 Intake & Output 06/17/19 06/18/19 06/19/19 06:59 06:59 06:59 Intake Total 260 854 Balance 260 854 Weight 59.7 kg General appearance: PRESENT: no acute distress Eye exam: PRESENT: PERRLA Respiratory exam: PRESENT: clear to auscultation dianna Cardiovascular exam: PRESENT: +S1, +S2 GI/Abdominal exam: PRESENT: soft Neurological exam: PRESENT: alert Results Laboratory Results: 06/17/19 11:39 06/17/19 11:39 06/17/19 06/17/19 06/17/19 11:39 11:39 19:07 Creatine Kinase 252 H 237 H CK-MB (CK-2) 2.96 Troponin I < 0.012 06/17/19 06/18/19 06/18/19 19:07 00:58 00:58 Creatine Kinase 231 H CK-MB (CK-2) 2.97 2.40 Troponin I < 0.012 < 0.012 06/18/19 06/18/19 06:53 06:53 Creatine Kinase 197 H CK-MB (CK-2) 2.28 Troponin I < 0.012 Assessment & Plan - Diagnosis (1) Chest pain Qualifiers: Chest pain type: unspecified Qualified Code(s): R07.9 - Chest pain, unspecified Is this a current diagnosis for this admission?: Yes (2) CAD (coronary artery disease) Qualifiers: Coronary Disease-Associated Artery/Lesion type: [place] artery [place] vs. transplanted heart: [place] heart Associated angina: without angina Qualified Code(s): I25.10 - Atherosclerotic heart disease of [place] coronary artery without angina pectoris Is this a current diagnosis for this admission?: Yes (3) Left bundle branch block (LBBB) Is this a current diagnosis for this admission?: Yes (4) Abnormal stress test Is this a current diagnosis for this admission?: Yes Plan: Consultation will be requested from, cardiology, she may need cardiac cathet erization - Time Time Spent with patient: 25-34 minutes Level of Care: TELE
[2019-06-18] MEDS ORDERED: ATORVASTATIN CALCIUM 40 MG TABLET PO SCH (22:00)
--- NOTE | 2019-06-18 22:10 | PDOC CONSULTATION ---
Consultation Consult Date: 06/18/19 Provider Consulted: KATE HAYDEN Consult reason:: Abnormal stress test History of Present Illness Admission Date/PCP: 06/17/19 14:54 RICHARD LOPEZ MD Patient complains of: Chest pain History of Present Illness: SUE ROBLEDO is a 78 year old female With the following active problems 1. Coronary artery disease 2. PCI 4 years ago-[place], [place] 3. Systemic hypertension 4. Dyslipidemia 5. Left bundle branch block 78-year-old lady who was admitted to the hospital with complaints of chest pain. She underwent myocardial perfusion imaging study which was abnormal. Cardiology consultation was subsequently requested. At the time of my evaluation patient is resting comfortably in bed without any chest pain. She is a former smoker and quit cigarettes approximately 4 years ago. She does not report other complaints. There is no familial illnesses reported to me. Past Medical History Cardiac Medical History: Reports: Coronary Artery Disease, Hyperlipidema, Hypertension Denies: Congestive Heart Failure, DVT, Myocardial Infarction, Pulmonary Embolism Pulmonary Medical History: Reports: Chronic Obstructive Pulmonary Disease (COPD) Neurological Medical History: Denies: Seizures Endocrine Medical History: Reports: Diabetes Mellitus Type 2 Denies: Diabetes Mellitus Type 1, Hyperthyroidism, Hypothyroidism GI Medical History: Denies: Cirrhosis, Gastroesophageal Reflux Disease, Hepatitis Musculoskeltal Medical History: Reports: Arthritis Skin Medical History: Denies: Eczema, Psoriasis Psychiatric Medical History: Denies: Depression Past Surgical History Past Surgical History: Reports: Cardiac Catheterization, Coronary Stent, Tubal Ligation Social History Lives with: Family Smoking Status: Former Smoker Frequency of Alcohol Use: None Hx Recreational Drug Use: No Drugs: None Hx Prescription Drug Abuse: No Family History Family History: Reviewed & Not Pertinent Parental Family History Reviewed: No - No familial illnesses Children Family History Reviewed: NA Sibling(s) Family History Reviewed.: NA Medication/Allergy Home Medications: Albuterol Sulfate [Albuterol Sulfate Hfa] 2 puff IH Q4HP PRN 06/17/19 Alendronate Sodium [Fosamax 70 mg Tablet] 70 mg PO FR@1000 06/17/19 Aspirin [Adult Low Dose Aspirin EC] 81 mg PO DAILY 06/17/19 Atorvastatin Calcium [Lipitor 40 mg Tablet] 40 mg PO QHS 06/17/19 Ergocalciferol (Vitamin D2) [Vitamin D2] 50 mcg PO DAILY 06/17/19 Metoprolol Succinate [Toprol Xl 50 mg Tab.sr] 50 mg PO DAILY 06/17/19 Nitroglycerin [Nitrostat 0.4 mg (1/150 Gr) Tabs 25/Bottle] 1 tab SL Q5MP PRN 06/17/19 Omeprazole 40 mg PO QHS 06/17/19 Umeclidinium Brm/Vilanterol Tr [Anoro Ellipta 62.5-25 Mcg INH] 1 puff IH DAILY 06/17/19 Allergies/Adverse Reactions: No Known Allergies Allergy (Verified 07/04/16 04:12) Review of Systems Cardiovascular: PRESENT: chest pain Respiratory: PRESENT: as per HPI Physical Exam Vital Signs: Temp Pulse Resp BP Pulse Ox 97.2 F 64 18 149/73 H 95 06/18/19 15:05 06/18/19 15:05 06/18/19 15:05 06/18/19 15:05 06/18/19 15:05 Intake & Output 06/17/19 06/18/19 06/19/19 06:59 06:59 06:59 Intake Total 260 854 Balance 260 854 Weight 59.7 kg General appearance: PRESENT: cooperative, obese Head exam: PRESENT: atraumatic, normocephalic Eye exam: PRESENT: conjunctiva pink, EOMI Mouth exam: PRESENT: moist Respiratory exam: PRESENT: unlabored Cardiovascular exam: PRESENT: RRR, +S1, +S2 Pulses: PRESENT: normal radial pulses GI/Abdominal exam: PRESENT: soft Rectal exam: PRESENT: deferred Musculoskeletal exam: PRESENT: normal inspection Neurological exam: PRESENT: alert, awake, oriented to person, oriented to place, oriented to time, oriented to situation, reflexes normal Psychiatric exam: PRESENT: appropriate affect Skin exam: PRESENT: dry Results Laboratory Results: 06/17/19 11:39 06/17/19 11:39 06/17/19 06/17/19 06/17/19 11:39 11:39 19:07 Creatine Kinase 252 H 237 H CK-MB (CK-2) 2.96 Troponin I < 0.012 06/17/19 06/18/19 06/18/19 19:07 00:58 00:58 Creatine Kinase 231 H CK-MB (CK-2) 2.97 2.40 Troponin I < 0.012 < 0.012 06/18/19 06/18/19 06:53 06:53 Creatine Kinase 197 H CK-MB (CK-2) 2.28 Troponin I < 0.012 EKG Comments: Twelve-lead EKG was reviewed and shows sinus rhythm with left bundle branch block Impressions: Abnormal stress test. There is scar in the LAD distribution with possible ischemia. Assessment & Plan - Diagnosis (1) CAD (coronary artery disease) Qualifiers: Coronary Disease-Associated Artery/Lesion type: [place] artery [place] vs. transplanted heart: [place] heart Associated angina: without angina Qualified Code(s): I25.10 - Atherosclerotic heart disease of [place] coronary artery without angina pectoris Is this a current diagnosis for this admission?: Yes Plan: Coronary artery disease Patient reports stents to unknown vessel from approximately 4 years ago in [facility] Continue aspirin statin and beta-miya (2) Left bundle branch block (LBBB) Is this a current diagnosis for this admission?: Yes Plan: And if his conduction disease. (3) Abnormal stress test Is this a current diagnosis for this admission?: Yes Plan: Known coronary artery disease with stents from 4 years ago now presenting with chest pain. Myocardial perfusion imaging study is abnormal. EKG with left bundle branch block Given presentation with symptoms and passage of time will proceed with cardiac catheterization. Risk benefits and alternatives to the procedure were discussed. Risks include but are not limited to infection, bleeding, myocardial infarction, stroke, vascular damage with requirement for surgical repair and even . Outcomes include continued medical therapy, percutaneous coronary intervention and even bypass surgery. Patient understands risks and benefits and is willing to procee d. We will arrange for transfer to [place]. - Notes Notes: We will arrange for transfer to [place] for cardiac cessation given abnormal stress test and presentation with chest pain after stents from before. Discussed with referring physician as well.
--- NOTE | 2019-06-18 22:14 | PDOC TRANSFER SUMMARY ---
General Admission Date/PCP: 06/17/19 14:54 RICHARD LOPEZ MD Admission Date: 06/17/19 Transfer Date: 06/19/19 Accepting Facility: [facility] Accepting Physician: Craig Crane MD Resuscitation Status: Full Code - Transfer Diagnosis (1) CAD (coronary artery disease) Is this a current diagnosis for this admission?: Yes Diagnosis Summary: Known coronary artery disease with stents from 4 years ago. Now presenting with chest pain.-Perfusion imaging study is abnormal. (2) Left bundle branch block (LBBB) Is this a current diagnosis for this admission?: Yes Diagnosis Summary: None of his conduction disease. No symptoms. Pre-existing left bundle (3) Abnormal stress test Is this a current diagnosis for this admission?: Yes Diagnosis Summary: Abnormal stress test. Given symptoms will proceed with cardiac catheterization - Transfer Medications Home Medications: Albuterol Sulfate [Albuterol Sulfate Hfa] 2 puff IH Q4HP PRN 06/17/19 Alendronate Sodium [Fosamax 70 mg Tablet] 70 mg PO FR@1000 06/17/19 Aspirin [Adult Low Dose Aspirin EC] 81 mg PO DAILY 06/17/19 Atorvastatin Calcium [Lipitor 40 mg Tablet] 40 mg PO QHS 06/17/19 Ergocalciferol (Vitamin D2) [Vitamin D2] 50 mcg PO DAILY 06/17/19 Metoprolol Succinate [Toprol Xl 50 mg Tab.sr] 50 mg PO DAILY 06/17/19 Nitroglycerin [Nitrostat 0.4 mg (1/150 Gr) Tabs 25/Bottle] 1 tab SL Q5MP PRN 06/17/19 Omeprazole 40 mg PO QHS 06/17/19 Umeclidinium Brm/Vilanterol Tr [Anoro Ellipta 62.5-25 Mcg INH] 1 puff IH DAILY 06/17/19 Transfer Medications: Current Medications Albuterol (Proair Hfa Inhalation Aerosol 8.5 Gm Mdi) 2 puff IH Q4HP PRN PRN Reason: SHORTNESS OF BREATH Stop: 07/17/19 17:41 Aspirin (Ecotrin 81 Mg Ec Tablet) 81 mg PO DAILY [facility] Stop: 07/17/19 17:59 Last Admin: 06/18/19 10:55 Dose: 81 mg Documented by: Atorvastatin Calcium (Lipitor 40 Mg Tablet) 80 mg PO QHS [facility] Stop: 07/18/19 21:59 Last Admin: 06/18/19 22:08 Dose: 80 mg Documented by: Cholecalciferol (Vitamin D3 1000 Unit Tablet) 1,000 unit PO DAILY [facility] Stop: 07/17/19 19:14 Last Admin: 06/18/19 10:55 Dose: 1,000 unit Documented by: Enoxaparin Sodium (Lovenox Inj 40 Mg/0.4 Ml Disp.Syrin) 40 mg SUBCUT DAILY [facility] Stop: 07/17/19 17:44 Last Admin: 06/18/19 10:55 Dose: 40 mg Documented by: Metoprolol Succinate (Toprol Xl 50 Mg Tab.Sr) 50 mg PO DAILY [facility] Stop: 07/17/19 17:44 Last Admin: 06/18/19 10:55 Dose: 50 mg Documented by: Nitroglycerin (Nitrostat 0.4 Mg (1/150 Gr) Tabs 25/Bottle) 1 tab SL Q5MP PRN PRN Reason: CHEST PAIN Stop: 07/17/19 17:41 Last Admin: 06/18/19 12:19 Dose: 1 tab Documented by: Oxycodone/Acetaminophen (Percocet 5-325 Mg Tablet) 1 tab PO Q4HP PRN PRN Reason: FOR PAIN Stop: 06/25/19 12:44 Last Admin: 06/18/19 13:16 Dose: 1 tab Documented by: Pantoprazole Sodium (Protonix [address] Tablet) 40 mg PO Q6AM [facility] Stop: 07/18/19 05:59 Last Admin: 06/18/19 05:20 Dose: Not Given Documented by: Patient Own Medication (Alendronate Sodium [Fosamax 70 Mg Tablet]) 70 mg PO FR@1000 [facility] Stop: 07/21/19 09:59 Patient Own Medication (Umeclidinium Brm/Vilanterol Tr [Anoro Ellipta 62.5-25 Mcg Inh]) 1 puff IH DAILY [facility] Stop: 07/17/19 17:44 - Allergies Allergies/Adverse Reactions: No Known Allergies Allergy (Verified 07/04/16 04:12) Hospital Course Hospital Course: Patient was admitted to hospital with complaints of chest pain. She is known to have coronary disease with stents from 4 years ago. She has known left bundle branch block on her EKG. Myocardial perfusion imaging study was abnormal. Patient is being transferred to [place] for cardiac catheterization. Physical Exam Vital Signs: Temp Pulse Resp BP Pulse Ox 97.2 F 64 18 149/73 H 95 06/18/19 15:05 06/18/19 15:05 06/18/19 15:05 06/18/19 15:05 06/18/19 15:05 Intake & Output 06/17/19 06/18/19 06/19/19 06:59 06:59 06:59 Intake Total 260 854 Balance 260 854 Weight 59.7 kg General appearance: PRESENT: no acute distress, cooperative, obese Head exam: PRESENT: atraumatic, normocephalic Eye exam: PRESENT: EOMI Mouth exam: PRESENT: dry mucosa Respiratory exam: PRESENT: unlabored Cardiovascular exam: PRESENT: RRR, +S1, +S2 GI/Abdominal exam: PRESENT: soft Rectal exam: PRESENT: deferred Neurological exam: PRESENT: alert, awake, oriented to person, oriented to place, oriented to time, oriented to situation Psychiatric exam: PRESENT: appropriate affect Skin exam: PRESENT: dry, intact, normal color Results Laboratory Results: 06/17/19 11:39 06/17/19 11:39 06/17/19 06/17/19 06/17/19 11:39 11:39 19:07 Creatine Kinase 252 H 237 H CK-MB (CK-2) 2.96 Troponin I < 0.012 06/17/19 06/18/19 06/18/19 19:07 00:58 00:58 Creatine Kinase 231 H CK-MB (CK-2) 2.97 2.40 Troponin I < 0.012 < 0.012 06/18/19 06/18/19 06:53 06:53 Creatine Kinase 197 H CK-MB (CK-2) 2.28 Troponin I < 0.012 EKG Comments: Twelve-lead EKG shows sinus rhythm with left bundle branch block. Impressions: Chest x-ray is not available Status: Image reviewed by me - Myocardial perfusion imaging study is abnormal scar and possible ischemia in the LAD distribution Plan Discharge Plan: Have arranged for transfer to [place] for cardiac catheterization. Cardiac connections is aware. Anticipate transfer in the next 24 hours. Nurse on floor taking care of patient as well as referring physician Dr. Lopez have been notified. Time Spent: Greater than 30 Minutes - Transfer has been arranged. Phone call was made to cardiac attention. Transfer summary has been dictated. Nurse on the floor has been informed of care plan. Patient has also been informed and is in agreement.
[2019-06-19] MEDS: PANTOPRAZOLE SODIUM 40 MG TABLET.DR PO SCH (05:31)
[2019-06-19] MEDS: ENOXAPARIN SODIUM INJ 40 MG/0.4 ML DISP.SYRIN SUBCUT SCH (10:55)
[2019-06-19] MEDS: ASPIRIN 81 MG TABLET, ENT COATED PO SCH (10:55)
[2019-06-19] MEDS: CHOLECALCIFEROL (D3) 1,000 UNIT (25 MCG) TABLET PO SCH (10:55)
[2019-06-19] MEDS: METOPROLOL SUCCINATE 50 MG TAB.SR.24H PO SCH (10:55)
[2019-06-19 11:29] VITALS: BP 145/79
[2019-06-21] MEDS ORDERED: (PENDING PHARMACY ID) (Alendronate Sodium [Fosamax 70 Mg Tablet] 70 MG) PO SCH (10:00)
== END 2019-06-19 13:38 | disposition short-term general hospital (02) ==
LOC: ER 12:12 → EH 14:54 → 4N 17:22
PROVIDERS: ADMIT Internal Medicine; ATTEND Internal Medicine
DX: I25.10 Atherosclerotic heart disease of native coronary artery without angina pectoris (principal); R07.89 Other chest pain; I44.7 Left bundle-branch block, unspecified; R94.39 Abnormal result of other cardiovascular function study; I10 Essential (primary) hypertension; E78.5 Hyperlipidemia, unspecified; J44.9 Chronic obstructive pulmonary disease, unspecified; E66.9 Obesity, unspecified; Z95.5 Presence of coronary angioplasty implant and graft; Z79.899 Other long term (current) drug therapy; Z79.82 Long term (current) use of aspirin; Z87.891 Personal history of nicotine dependence; Z87.19 Personal history of other diseases of the digestive system; Z23 Encounter for immunization
CPT/HCPCS: 93005; 99285; 96374; 36415 ×2; 82553 ×2; 82550 ×2; 85025; 85610; 80053; 84484 ×2; 93017; 78452; 90686; 93010; A9500; J2785; A9270 ×11; J1650; C9113; Q9969; J3490